=== PATIENT | male | born 1950 | race Caucasian/White ===

== ENCOUNTER 2024-09-30 10:23 | Inpatient (IN) | payer OTHER, SELFPAY ==
[2024-09-30] VITALS (15 sets, daily range): BP systolic 121–159; BP diastolic 79–104; PULSE 55–256; RESP 12–98; TEMP 36.4–37.2; O2SAT 97–100; BMI 48.2; BMI 47.6
--- NOTE | 2024-09-30 10:25 | PC.NURSE ---
@1025- BIBA; PER EMS, PT C/O SOB, PT WAS WALKING HIS DOG WHEN PT STARTED TO FEEL SHORT OF BREATH. HE LAID HIMSELF ON THE WALK WAY. UPON OUR ARRIVAL, PT WAS PALE, DIAPHORETIC, WITH SOB. PT'S HR BETWEEN 250'S-260'S WHEN CONNECTED ON THE MONITOR. PMH OF HIGH BP & HIGH CHOLESTEROL. PT RECEIVED 6MG OF ADENOSINE, PT DID NOT RESPOND. PT GIVEN 12MG MORE OF ADENOSINE; PT STILL DID NOT RESPOND TO MEDICATION. PT PLACED ON NRB AT 15L. UPON PT ARRIVAL, PT PLACED ON MONITOR; PT'S HR FLUCTUATED BETWEEN 250'S TO 260'S WELL. DR. JULIO AT BEDSIDE AND ASSESSED PT'S RHYTHM. PER DR. JULIO, PT IN V-TACH. PREPARE TO SHOCK. PT CONNECTED TO DEFIB PADS AT 1028. @1029 PT WAS SHOCKED WITH 200J; POSITIVE RESPONSE. PT'S HR DECREASED TO 125 AT THIS TIME. @1030- PT GIVEN 300MG IVPUSH AMIODARONE, PER DR. JULIO VERBAL ORDER WITH READ BACK. @1035- PT'S HR NOW 107.
[2024-09-30] MEDS: AMIODARONE 50 MG/ML 300 MG IV (10:30)
--- NOTE | 2024-09-30 10:39 | EKG_ITS ---
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
[2024-09-30] MEDS: SODIUM CHLORIDE 0.9% 1000 ML 1,000 ML 999 ML IV (10:40)
--- NOTE | 2024-09-30 10:51 | EDNOTE_ITS ---
ED SOB =RME/HPI General Chief Complaint: Shortness of Breath/Dyspnea Stated Complaint: SVT Time Seen by Provider: 09/30/24 10:50 Arrival date/time: 09/30/24 10:23 RME / HPI RME / HPI Narrative: 73-year-old male patient brought in by ambulance for tachycardia. Per EMS patient was walking his dog when he became dizzy and short of breath, then laid on the ground. EMS tried to get him up and he complained of severe dizziness. When they placed a monitor they noted his heart rate to be over 200. They tried adenosine 6 mg and route without success. On arrival patient is lethargic groaning diaphoretic. Blood pressure was not obtainable. Patient was placed on the monitor and noted to be in V. tach. Shocked delivered. Patient converted to sinus rhythm. Now awake and alert. Related Data Previous Rx's ?Medication ?Instructions ?Recorded amiodarone 200 mg tablet 200 mg PO BID 30 days #60 ta bs 10/03/24 aspirin 81 mg chewable tablet 81 mg PO QDAY heart fail 30 days 10/03/24 (Suha Chewable Low Dose Aspirin) #30 tabs atorvastatin 20 mg tablet 40 mg (2 x 20 mg) PO HS 07/25 Hyperlipidemia 30 days #60 tabs bumetanide 1 mg tablet 1 mg PO QDAY heart failure # 30 tabs 10/03/24 metformin 500 mg tablet,extended 500 mg PO QDAY 30 day s #30 tabs 10/03/24 release 24 hr metoprolol succinate 25 mg 25 mg PO QDAY 30 days #30 t abs 10/03/24 tablet,extended release 24 hr Allergies Allergy/AdvReac Type Severity Reaction Status Date / Time No Known Allergies Allergy Verified 09/30/24 11:10 Review of Systems Review of Systems ROS Unobtainable: unobtainable due to medical condition Past Medical History Past Medical History CARDIAC: Positive Hypercholesterolemia and Hypertension; Negative Congestive Heart Failure RESPIRATORY: Negative Chronic Obstructive Pulmonary Disease (COPD) GENITOURINARY: Negative Renal Disease ENDOCRINE: Negative Diabetes Mellitus Type 1 or Diabetes Mellitus Type 2 Family History FAMILY HISTORY: Positive Family Cardiac Disorders; Negative Family Cancer Surgical History SURGICAL: Positive Knee Sx Social History SMOKING STATUS: Never smoker ED Exam Narrative Physical exam: GENERAL APPEARANCE: altered, morbidly obese, moaning and groaning, responds to verbal and painful stimuli VITALS: All vitals were reviewed and the pulse ox is 99% on 15L/nonrebrether mask which is abnormal according to my interpretation. HEENT: Normocephalic, atraumatic; pupils equal, round, reactive to light; EOMI; mucous membranes pink, moist; oropharynx clear NECK: Supple LUNGS: CTABL; no wheezes, no rales, no rhonchi HEART: Tachycardic, distant heart sounds ABDOMEN: non distended; normal BS; soft, no tenderness, no guarding, no rebound; no masses, no organomegaly, no hernia BACK: no CVA tenderness EXTREMITIES: atraumatic; no edema; weak thready pulses NEUROLOGIC: altered, confused SKIN: warm, diaphoretic, pale; no rashes Course Quality Measures none Orders Category Date Time Status Patient Condition Routine Admission 09/30/24 13:48 Ordered Lift Slab Operator NOW Care 09/30/24 11:22 Completed EKG (ED ONLY) *Do not use* NOW Care 09/30/24 10:39 Completed EKG (ED ONLY) *Do not use* NOW Care 09/30/24 13:37 Completed Intake and Output QSHIFT Care 09/30/24 14:00 Ordered Miscellaneous Nursing Order NOW Care 09/30/24 13:48 Completed Notify provider NEEDED Care 09/30/24 13:48 Completed Obtain weight NOW Care 09/30/24 13:48 Completed CA echo doppler complete Stat Exams 09/30/24 13:22 Completed EKG (ED Only) Stat Exams 09/30/24 10:39 Draft EKG (ED Only) Stat Exams 09/30/24 13:37 Ordered EKG (ED Only) Urgent Exams 09/30/24 13:37 Ordered XR chest 1V portable Stat Exams 09/30/24 11:22 Completed B-Type Natriuretic Peptide Stat Lab 09/30/24 11:37 Completed CBC AM DRAW Lab 10/01/24 03:34 Completed CBC AM DRAW Lab 10/02/24 06:14 Completed CBC AM DRAW Lab 10/03/24 05:57 Completed CBC Stat Lab 09/30/24 11:37 Completed CMP [Comprehensive Metabolic Panel] AM DRAW Lab 10/01/24 03:34 Completed CMP [Comprehensive Metabolic Panel] AM DRAW Lab 10/02/24 06:14 Completed CMP [Comprehensive Metabolic Panel] AM DRAW Lab 10/03/24 05:57 Completed Comprehensive Metabolic Panel Stat Lab 09/30/24 11:37 Completed Lipase Stat Lab 09/30/24 11:37 Completed Lipid Panel AM DRAW Lab 10/01/24 03:34 Completed MRSA Nasal Screen Stat Lab 09/30/24 16:20 Completed Magnesium AM DRAW Lab 10/01/24 03:34 Completed Magnesium Stat Lab 09/30/24 11:37 Completed Partial Thromboplastin Time Stat Lab 09/30/24 11:37 Completed Phosphorous AM DRAW Lab 10/01/24 03:34 Completed Prothrombin Time with INR Stat Lab 09/30/24 11:37 Completed Thyroid Stimulating Hormone AM DRAW Lab 10/01/24 03:34 Completed Troponin I Stat Lab 09/30/24 11:37 Completed Urinalysis Routine Lab 09/30/24 14:43 Completed Acetaminophen Tab [Tylenol Tab] Med 09/30/24 13:48 Discontinued 650 mg PO Q6H PRN Adenosine 6mg Inj [Adenocard Inj] Med 09/30/24 10:21 Discontinued 12 mg .ROUTE .STK-MED ONE Adenosine 6mg Inj [Adenocard Inj] Med 09/30/24 10:21 Discontinued 6 mg .ROUTE .STK-MED ONE Amiodarone 150 mg Ivpb [Nexterone Ivpb] Med 09/30/24 10:41 Discontinued 150 mg in 100 ml IV 600 mls/hr Amiodarone 150 mg Ivpb [Nexterone Ivpb] Med 09/30/24 10:30 Discontinued 150 mg in 100 ml IV Q5M Amiodarone 360 mg Ivpb [Nexterone Ivpb] Med 09/30/24 16:51 Discontinued 360 mg in 200 ml IV 16.667 mls/hr Amiodarone 360 mg Ivpb [Nexterone Ivpb] Med 09/30/24 10:51 Discontinued 360 mg in 200 ml IV 33.333 mls/hr Amiodarone Inj [Cordarone Inj] Med 09/30/24 10:45 Discontinued 300 mg IV X1 ONE Amiodarone Inj [Cordarone Inj] 300 mg Med 09/30/24 10:37 Discontinued Dextrose 5%-Water [D5w] 100 ml IV X1 Ondansetron Inj [Zofran Inj] Med 09/30/24 13:48 Discontinued 4 mg IV Q6H PRN Senna [Senokot] Med 09/30/24 13:48 Discontinued 2 tab PO BID PRN Sodium Chloride 0.9% 1000 ml [Ns] 1,000 ml Med 09/30/24 10:48 Discontinued IV 999 mls/hr Code Status Routine Oth 09/30/24 13:48 Completed Oxygen Delivery DAILY RT 09/30/24 13:48 Completed Vital Signs Vital signs: Vital Signs Temperature 98.3 F 09/30/24 10:30 Pulse Rate 256 H 09/30/24 10:30 Respiratory Rate 24 H 09/30/24 10:30 Blood Pressure 147/100 H 09/30/24 10:30 Pulse Oximetry (%) 99 09/30/24 10:30 Oxygen Flow Rate 15 09/30/24 10:30 Shortness of Breath / Dyspnea MDM Narrative MDM Narrative:: Patient was cardioverted due to being in Vtach. Patient returned back to NSR and became awake, alert, and oriented x4. Patient given amiodarone 300mg and started on a amiodarone drip. Discussed case with Dr. Thompson from cardiology regarding consultation. Discussed patients ED course, exam findings, labs, and radiology results. Agrees to consult. Discussed case with the resident physician, attending Dr. Abebe from Hospitalist service regarding admission. Discussed patients ED course, exam findings, labs, and radiology results. The Hospitalist agrees to accept the patient for admission. Patient data External records reviewed:: [facility] previous records (Per chart review, patient has no previous ED visits or admissions to this facility.) and EMS form Clinical information provided by:: EMS Social determinants that could affect healthcare access:: none Patient has the following chronic illnesses:: HTN, HLD How is presenting disease/condition affected by chronic disease/condition?: uneffected by Evaluation data The following diagnostics were reviewed and interpreted by me:: lab results and EKG tracing(s) Lab and/or radiology exams considered but not ordered:: none Interpretation Summary: EKG done at 1342, mild sinus arrhythmia, rate of 68, notched P wave, MS interval: 171, QTc: 473, no STEMI, according to my interpretation. -------- [facility] Report Signed Patient: PELON LOTT. Record#: [id number] Birthdate: 1950 Age/Sex: 73 / M Location: [facility] Attending Dr: Ordering Physician: Annalisa Bolden MD Date of Service: 09/30/24 Procedure(s): XR chest 1V portable Accession Number(s): [id number] cc: Mahamed Longo MD; Annalisa Bolden MD~ Examination: AP chest single view Technique one AP portable upright chest single view Date and time: September 30, 2024 1130 hours INDICATIONS: Onset chest pain today. FINDINGS: Mild heart failure. Mild enlargement cardiac contour. Prominent vascular congestion. No lobar pneumonia. IMPRESSION: Mild heart failure Dictated By: Mahamed Longo MD Signed By: <Electronically signed by Mahamed Longo MD in OV> 09/30/24 1136 Medications / Prescriptions Medications or Prescriptions considered but not ordered:: none Medication administrations:: Medication Administration History Discontinued Medications Acetaminophen (Acetaminophen 325 Mg Tablet) 650 mg PO Q6H PRN PRN Reason: PAIN 1-3 OR FEVER > 101 Stop: 10/30/24 13:47 Adenosine (Adenosine Inj 3 Mg/Ml Vial) Confirm Administered Dose 6 mg .ROUTE .STK-MED ONE Stop: 09/30/24 10:22 Last Admin: 09/30/24 10:35 Dose: Not Given Documented By: Non-Admin Reason: Cancelled by Provider Adenosine (Adenosine Inj 3 Mg/Ml Vial) Confirm Administered Dose 12 mg .ROUTE .STK-MED ONE Stop: 09/30/24 10:22 Last Admin: 09/30/24 10:35 Dose: Not Given Documented By: Non-Admin Reason: Cancelled by Provider Amiodarone HCl (Amiodarone Inj 50 Mg/Ml Vial 3 Ml) 300 mg IV X1 ONE Stop: 09/30/24 10:46 Last Admin: 09/30/24 10:30 Dose: 300 mg Documented By: GM Aspirin (Aspirin Ec 81 Mg Tabec) 81 mg PO DAILY JASON Stop: 10/31/24 08:59 Last Admin: 10/03/24 08:45 Dose: 81 mg Documented By: Admin: 10/02/24 08:14 Dose: 81 mg Documented By: Admin: 10/01/24 10:12 Dose: 81 mg Documented By: QUE Atorvastatin Calcium (Atorvastatin Calcium 20 Mg Tablet) 40 mg PO HS [facility] Stop: 10/31/24 20:59 Last Admin: 10/02/24 20:22 Dose: 40 mg Documented By: Admin: 10/01/24 20:04 Dose: 40 mg Documented By: CARRIE Atropine Sulfate (Atropine Sulf Inj 1 Mg/Ml Vial) Confirm Administered Dose 1 mg .ROUTE .SOAK ([employer] ONE Stop: 10/01/24 10:35 Last Admin: 10/01/24 10:59 Dose: Not Given Documented By: PLACIDO Non-Admin Reason: Duplicate Medication on eMAR Bumetanide (Bumetanide 0.5 Mg Tablet) 1 mg PO BID [facility] Stop: 11/01/24 08:59 Last Admin: 10/03/24 08:46 Dose: 1 mg Documented By: Admin: 10/02/24 20:22 Dose: 1 mg Documented By: Admin: 10/02/24 08:16 Dose: 1 mg Documented By: QUE Dextrose (Dextrose 50%-Water Inj 50 Ml Syringe) 25 ml IV Q15MIN PRN PRN Reason: BG 50-70 responsive npo pt Stop: 10/31/24 08:26 Dextrose (Dextrose 50%-Water Inj 50 Ml Syringe) 50 ml IV Q15MIN PRN PRN Reason: BG <50 OR BG <70 & pt unresponsive Stop: 10/31/24 08:26 Epinephrine HCl (Epinephrine Inj 0.1 Mg/Ml Syringe 10ml) Confirm Administered Dose 1 mg .ROUTE .Plazapoints (Cuponium) ONE Stop: 10/01/24 10:36 Last Admin: 10/01/24 10:59 Dose: Not Given Documented By: PLACIDO Non-Admin Reason: Duplicate Medication on eMAR Famotidine (Famotidine Inj 10 Mg/Ml Vial 2 Ml) 20 mg IVP BID [facility] Stop: 10/31/24 08:59 Last Admin: 10/03/24 08:43 Dose: 20 mg Documented By: Admin: 10/02/24 20:22 Dose: 20 mg Documented By: Admin: 10/02/24 08:14 Dose: 20 mg Documented By: Admin: 10/01/24 20:03 Dose: 20 mg Documented By: Admin: 10/01/24 10:12 Dose: 20 mg Documented By: QUE Fentanyl Citrate (Fentanyl Cit Inj 50 Mcg/Ml Amp 2ml) Confirm Administered Dose 100 mcg .ROUTE .SOAK ([employer] ONE Stop: 10/01/24 10:35 Last Admin: 10/01/24 10:59 Dose: Not Given Documented By: DL Non-Admin Reason: Duplicate Medication on eMAR Flumazenil (Flumazenil Inj 0.1 Mg/Ml Vial 10 Ml) Confirm Administered Dose 1 mg .ROUTE .STK-MED ONE Stop: 10/01/24 10:36 Last Admin: 10/01/24 11:00 Dose: Not Given Documented By: DL Non-Admin Reason: Duplicate Medication on eMAR Glucagon (Glucagon Inj 1 Mg Vial) 1 mg IM Q15MIN PRN PRN Reason: BG <70, and no IV access Heparin Sodium (Porcine) (Heparin Sod Inj 5000 Unit/Ml Vial) 4,000 unit IV X1 ONE; Protocol Stop: 09/30/24 20:32 Last Admin: 09/30/24 21:30 Dose: 4,000 unit Documented By: SM Co-signed By: RC Heparin Sodium (Porcine) (Heparin Sod Inj 5000 Unit/Ml Vial 10 Ml) 4,000 unit IV X1 ONE Stop: 10/01/24 04:59 Last Admin: 10/01/24 05:07 Dose: Not Given Documented By: AM(2) Non-Admin Reason: Duplicate Medication on eMAR Heparin Sodium (Porcine) (Heparin Sod Inj 5000 Unit/Ml Vial 10 Ml) 4,000 unit IV X1 ONE Stop: 10/01/24 05:03 Last Admin: 10/01/24 05:13 Dose: Not Given Documented By: AM(2) Non-Admin Reason: Duplicate Medication on eMAR Heparin Sodium (Porcine) (Heparin Sod Inj 5000 Unit/Ml Vial) 4,000 unit IV X1 ONE Stop: 10/01/24 05:16 Last Admin: 10/01/24 05:19 Dose: 4,000 unit Documented By: AM(2) Co-signed By: RB Heparin Sodium (Porcine) (Heparin Sod Inj 1000 Unit/Ml Vial 10 Ml) Confirm Administered Dose 30,000 unit .ROUTE .STK-MED ONE Stop: 10/01/24 10:36 Last Admin: 10/01/24 11:00 Dose: Not Given Documented By: DL Non-Admin Reason: Duplicate Medication on eMAR Hydralazine HCl (Hydralazine Inj 20 Mg/Ml Vial) Confirm Administered Dose 20 mg .ROUTE .STK-MED ONE Stop: 10/01/24 11:58 Last Admin: 10/01/24 12:58 Dose: Not Given Documented By: DL Non-Admin Reason: Duplicate Medication on eMAR Amiodarone HCl/Dextrose (Nexterone Ivpb) 150 mg in 100 mls @ 1,200 mls/hr IV Q5M JASON Stop: 09/30/24 10:39 Last Admin: 09/30/24 10:37 Dose: Not Given Documented By: GM Non-Admin Reason: Cancelled by Provider Admin: 09/30/24 10:30 Dose: Not Given Documented By: GM Non-Admin Reason: Other, see note Comments: CHANGED TO IV PUSH IN THE EVENT OF EMERGENCY Amiodarone HCl 300 mg/ (Dextrose) 106 mls @ 600 mls/hr IV X1 ONE Stop: 09/30/24 10:47 Last Admin: 09/30/24 10:43 Dose: Not Given Documented By: JOE Non-Admin Reason: Discontinued Amiodarone HCl/Dextrose (Nexterone Ivpb) 360 mg in 200 mls @ 33.333 mls/hr IV .Q6H ONE Stop: 09/30/24 16:50 Last Infusion: 09/30/24 21:34 Dose: Infused Documented By: Admin: 09/30/24 15:33 Dose: 33.333 mls/hr Documented By: JOE Amiodarone HCl/Dextrose (Nexterone Ivpb) 150 mg in 100 mls @ 600 mls/hr IV .Q10M ONE Stop: 09/30/24 10:50 Last Infusion: 09/30/24 13:43 Dose: Infused Documented By: Admin: 09/30/24 13:32 Dose: 600 mls/hr Documented By: MIHAI Amiodarone HCl/Dextrose (Nexterone Ivpb) 360 mg in 200 mls @ 16.667 mls/hr IV .Q12H JASON Stop: 10/01/24 16:50 Last Admin: 10/01/24 10:15 Dose: 16.667 mls/hr Documented By: Infusion: 10/01/24 09:38 Dose: Infused Documented By: Admin: 09/30/24 21:38 Dose: 16.667 mls/hr Documented By: ANGELES Sodium Chloride (Ns) 1,000 mls @ 999 mls/hr IV .Q1H1M ONE Stop: 09/30/24 11:48 Last Infusion: 09/30/24 11:45 Dose: Infused Documented By: Admin: 09/30/24 10:40 Dose: 999 mls/hr Documented By: JOE Heparin Sodium/Dextrose (Heparin In D5w Ivpb) 25,000 unit in 250 mls @ 10 mls/hr IV .Q24H [facility]; Protocol Stop: 10/14/24 20:44 Last Titration: 10/01/24 05:19 Dose: 11.032 units/kg/hr, 15.688 mls/hr Documented By: AM(2) Co-signed By: RB Admin: 09/30/24 21:32 Dose: 7.032 units/kg/hr, 10 mls/hr Documented By: ANGELES Co-signed By: DOROTHEA Nitroglycerin/Dextrose (Nitroglycerin In D5w Ivpb) Confirm Administered Dose 50 mg in 250 mls @ ud .ROUTE .STK-MED ONE Stop: 10/01/24 10:37 Last Admin: 10/01/24 11:00 Dose: Not Given Documented By: PLACIDO Non-Admin Reason: Duplicate Medication on eMAR Insulin Human Lispro (Insulin Lispro (Admelog) 1 Unit/0.01 Ml Unit) 0 unit SC AC [facility]; Protocol Stop: 10/31/24 11:29 Last Admin: 10/03/24 11:30 Dose: Not Given Documented By: EIMLY Non-Admin Reason: Per Protocol Admin: 10/03/24 07:30 Dose: Not Given Documented By: EMILY Non-Admin Reason: Per Protocol Admin: 10/02/24 17:00 Dose: Not Given Documented By: JLuke Non-Admin Reason: Per Protocol Admin: 10/02/24 11:30 Dose: Not Given Documented By: JT Non-Admin Reason: Per Protocol Admin: 10/02/24 08:17 Dose: Not Given Documented By: JT Non-Admin Reason: Per Protocol Admin: 10/01/24 17:26 Dose: Not Given Documented By: JT Non-Admin Reason: Per Protocol Admin: 10/01/24 11:30 Dose: Not Given Documented By: JT Non-Admin Reason: Pt not in room Lidocaine HCl (Lidocaine Inj Pf 1% 30 Ml Vial) Confirm Administered Dose 30 ml .ROUTE .STK-MED ONE Stop: 10/01/24 10:36 Last Admin: 10/01/24 11:00 Dose: Not Given Documented By: DL Non-Admin Reason: Duplicate Medication on eMAR Losartan Potassium (Losartan Potassium 25 Mg Tablet) 25 mg PO QDAY [facility] Stop: 11/01/24 08:59 Last Admin: 10/02/24 08:15 Dose: 25 mg Documented By: QUE Metoprolol Succinate (Metoprolol Succinate Xl 25 Mg Tabcr) 25 mg PO QDAY [facility] Stop: 10/31/24 08:59 Last Admin: 10/03/24 08:45 Dose: 25 mg Documented By: Admin: 10/02/24 08:14 Dose: 25 mg Documented By: Admin: 10/01/24 10:11 Dose: 25 mg Documented By: QUE Midazolam HCl (Midazolam Inj 1 Mg/Ml Vial 2 Ml) Confirm Administered Dose 4 mg .ROUTE .STK-MED ONE Stop: 10/01/24 10:35 Last Admin: 10/01/24 10:59 Dose: Not Given Documented By: DL Non-Admin Reason: Duplicate Medication on eMAR Naloxone HCl (Naloxone Inj 0.4 Mg/Ml Vial) Confirm Administered Dose 0.4 mg .ROUTE .STK-MED ONE Stop: 10/01/24 10:36 Last Admin: 10/01/24 11:00 Dose: Not Given Documented By: PLACIDO Non-Admin Reason: Duplicate Medication on eMAR Ondansetron HCl (Ondansetron Inj 2 Mg/Ml Inj 2 Ml) 4 mg IV Q6H PRN; Protocol PRN Reason: NAUSEA OR VOMITING Stop: 10/30/24 13:47 Phenylephrine HCl (Phenylephrine Inj In Ns 100 Mcg/Ml 10 Ml Syringe) Confirm Administered Dose 1,000 mcg .ROUTE .STK-MED ONE Stop: 10/01/24 10:36 Last Admin: 10/01/24 11:00 Dose: Not Given Documented By: DL Non-Admin Reason: Duplicate Medication on eMAR Potassium Chloride (Potassium Chloride 20 Meq Tabcr) 20 meq PO X1 ONE Stop: 10/03/24 09:10 Last Admin: 10/03/24 09:28 Dose: 20 meq Documented By: JOSH Sacubitril/Valsartan (Sacubitril 24 Mg/Valsartan 26 Mg Tablet) 1 tab PO BID JASON Stop: 11/02/24 08:59 Last Admin: 10/03/24 08:45 Dose: 1 tab Documented By: EMILY Sennosides (Senna Tablet) 2 tab PO BID PRN; Protocol PRN Reason: CONSTIPATION Stop: 10/30/24 13:47 see above Consultations Consultation(s) initiated? (list below): Yes Diagnosis Shortness of Breath Differential Diagnosis: other (arrhythmia, ACS, CVA, syncope, dehydration, seizure) Most likely diagnosis given after review of the tests above:: see clinical impression below Admission Indicated Admission indicated?: indicated Admission Request Was there a request for admission?: Yes Admission Attestation Admission request attestation: Discussed case with [] from Hospitalist service regarding admission. Discussed patients ED course, exam findings, labs, and radiology results. The Hospitalist [agrees,declines] to accept the patient for admission. Disposition Plan Disposition Plan: Admit Critical Care Time Critical Care Time Critical Care Time: Yes Total Critical Care Time (min.): 50 Attestation: The high probability of sudden, clinically significant deterioration in the patient?s condition required the highest level of my preparedness to intervene urgently. The services I provided to this patient were to treat and/or prevent clinically significant deterioration. Services included the following: chart data review, reviewing nursing notes and/or old charts, documentation time, career development consultant collaboration regarding findings and treatment options, medication orders and management, direct patient care, vital sign assessments and ordering, interpreting and reviewing diagnostic studies and lab tests. Aggregate critical care time includes only time during which I was engaged in work directly related to the patient?s care, as described above, whether at bedside or elsewhere in the Emergency Department. It did not include time spent performing other reported procedures or the services of residents, students, nurses or physician assistants. Discharge Plan Plan Patient Disposition: Admit Acute Care w/in Hospital Patient condition on transfer: Stable Problem List Clinical Impression: V-tach
--- NOTE | 2024-09-30 11:00 | PC.NURSE ---
SPOKE TO DR. JULIO; THIS RN SEEKING CLARIFICATION IF OK TO START AMIODARONE DRIP PROTOCOL. PT'S HR IN THE 70'S AT THIS TIME. PER DR. JULIO, HOLD THE AMIODARONE DRIP FOR NOW.
--- NOTE | 2024-09-30 11:22 | XR_ITS ---
Examination: AP chest single view Technique one AP portable upright chest single view Date and time: September 30, 2024 1130 hours INDICATIONS: Onset chest pain today. FINDINGS: Mild heart failure. Mild enlargement cardiac contour. Prominent vascular congestion. No lobar pneumonia. IMPRESSION: Mild heart failure
[2024-09-30 11:50] LABS: Basophils # (Auto) 0.0 Thou/mm3 (0.0-0.2); Basophils % (Auto) 0 % (0-2.5); Eosinophils # (Auto) 0.1 Thou/mm3 (0.0-0.5); Eosinophils % (Auto) 1 % (0-10); Hematocrit 45.1 % (41.0-53.0); Hemoglobin 15.9 g/dL (13.5-16.0); Immature Granulocytes Auto 0.04 Thou/mm3 (0.00-0.00); Lymphocytes # (Auto) 1.4 Thou/mm3 (1.0-4.8); Lymphocytes % (Auto) 12 % (10-50); Mean Corpuscular HGB Conc 35.3 g/dl (31.0-37.0); Mean Corpuscular Hemoglobin 31.2 pg (25.0-35.0); Mean Corpuscular Volume 88 fL (80-100); Monocytes # (Auto) 0.4 Thou/mm3 (0.0-0.8); Monocytes % (Auto) 3 % (0-12); Neutrophils # (Auto) 9.8 Thou/mm3 (1.8-7.7); Neutrophils % (Auto) 84 % (37-80); Nucleated Red Blood Cell # 0.00 Thou/mm3 (0.00-0.00); Nucleated Red Blood Cell % 0 /100 WBC (0); Platelet Count 165 Thou/mm3 (140-440); RDW Standard Deviation 42.0 fL (35.1-43.9); Red Blood Count 5.10 Miln/mm3 (4.50-5.90); White Blood Count 11.7 Thou/mm3 (3.8-10.6)
[2024-09-30 12:03] LABS: INR 1.0 (0.9-1.3); Partial Thromboplastin Time 24.2 Seconds (22.0-36.0); Prothrombin Time 11.4 Seconds (9.0-12.2)
[2024-09-30 12:11] LABS: Alanine Aminotransferase 59 U/L (10-49); Albumin, Serum 4.0 gm/dL (3.4-4.8); Albumin/Globulin Ratio 1.4 (1.2-2.2); Alkaline Phosphatase 75 U/L (46-116); Anion Gap 12 (7-16); Aspartate Amino Transferase 59 U/L (0-34); BUN/Creatinine Ratio 12 Ratio (12-20); Bilirubin,Total 0.8 mg/dL (0.3-1.2); Blood Urea Nitrogen 16 mg/dL (9-23); Calcium 9.1 mg/dL (8.3-10.6); Calcium (Corrected) 9.1 mg/dL (8.5-10.1); Carbon Dioxide 20.0 mMol/L (20.0-31.0); Chloride 108 mMol/L (98-107); Creatinine (Component) 1.3 mg/dL (0.6-1.3); Estimated Creatinine Clearance 71.6 mL/min (>60); Globulin 2.8 gm/dL (2.3-3.5); Glucose 241 mg/dL (74-106); Lipase 32 U/L (12-53); Magnesium 2.2 mg/dL (1.6-2.6); Osmolality,Calculated 288 (275-295); Potassium 4.4 mMol/L (3.4-5.1); Sodium 140 mMol/L (136-145); Total Protein 6.8 gm/dL (5.7-8.2); eGFR 58 See Note
[2024-09-30 12:13] LABS: B-Type Natriuretic Peptide 136 pg/mL (0-100); Troponin I 0.086 ng/mL (0.0-0.045)
--- NOTE | 2024-09-30 13:22 | ECHO_ITS ---
Transthoracic Echo Report Ht (in): 68 Wt (lb): 280 Exam Location: Echo Lab Status: Emergency Hay Stacker Operator: Sheri Jimenez Indications: Procedure Performed: BP: 139 / 85 HR: 99 Technical Quality: Technically Difficult Due to Body Habitus MEASUREMENTS (Male / Female) Normal Values 2D ECHO LV Diastolic Diameter PLAX 5.9 cm 4.2 - 5.9 / 3.9 - 5.3 cm LV Systolic Diameter PLAX 5.1 cm IVS Diastolic Thickness 1.1 cm 0.6 - 1.0 / 0.6 - 0.9 cm LVPW Diastolic Thickness 1.0 cm 0.6 - 1.0 / 0.6 - 0.9 cm LV Relative Wall Thickness 0.4 LVOT Diameter 2.2 cm LA Volume Index 42.7 cm?/m? 16 - 28 cm?/m? DOPPLER AV Peak Velocity 100.0 cm/s AV Peak Gradient 4.0 mmHg LVOT Peak Velocity 56.8 cm/s LVOT Peak Gradient 1.3 mmHg AV Area Cont Eq pk 2.2 cm? MV Area PHT 4.3 cm? Mitral E Point Velocity 95.1 cm/s Mitral A Point Velocity 19.4 cm/s Mitral E to A Ratio 4.9 LV E' Lateral Velocity 7.8 cm/s Mitral E to LV E' Lateral Ratio 12.1 LV E' Septal Velocity 6.5 cm/s Mitral E to LV E' Septal Ratio 14.6 PV Peak Velocity 82.8 cm/s PV Peak Gradient 2.7 mmHg FINDINGS Left Ventricle The left ventricular cavity size is moderately increased. The left ventricular castaneda are mildly thickened. The left ventricular ejection fraction is severely decreased, estimated at 10-15%. There is grade III diastolic dysfunction of the left ventricle (restrictive filling pattern). Right Ventricle The right ventricle appears enlarged. RVSP can not be determined due to innadequate tricuspid signal. Left Atrium The left atrial cavity size is moderately increased. Right Atrium The right atrium is normal by two-dimensional imaging, color flow and Doppler imaging with no structural abnormalities, no thrombus formation present. Atrial Septum The interatrial septum appears normal with no evidence of a shunt. Aorta The aorta is normal by two-dimensional, color flow and Doppler interrogation. Mitral Valve The mitral valve is normal by two-dimensional, color flow and Doppler interrogation. There is trace mitral regurgitation. Aortic Valve The aortic valve is trileaflet and normal by two-dimensional, color flow and Doppler interrogation. There is no significant aortic valve regurgitation. Tricuspid Valve The tricuspid valve is normal by two-dimensional, color flow and Doppler interrogation. There is no significant tricuspid valve regurgitation. Pulmonic Valve The pulmonic valve is not well visualized. There is no significant pulmonic valve regurgitation. Vessels The pulmonary artery appears normal. The inferior vena cava is severely enlarged with poor collapse. Pericardium The pericardium is normal by two-dimensional imaging. There is no significant pericardial effusion. CONCLUSIONS Indications: Arrythymia Mildly dilated LV with severely reduced LV systolic function with an EF of 20 to 25%. Diastolic dysfunction present but cannot be graded. Mild RV dilatation with normal RV function. RVSP could not be measured because of insufficient TR jet. Mild MAC and mild MR. Mild aortic valve sclerosis without stenosis. Mildly dilated LA. Dilated IVC. No Pericardial Effusion. Dilated cardiomyopathy. Ramsey Thompson (Electronically Signed) Final Date: 30 September 2024 22:59
--- NOTE | 2024-09-30 13:27 | PC.NURSE ---
Aiden Bolden start amiodarone drip. Patient heart rate 72 BP 143/92
[2024-09-30] MEDS: AMIODARONE 150 MG IVPB 150 MG/100 ML BAG 600 MG IV (13:32)
--- NOTE | 2024-09-30 14:19 | PC.NURSE ---
Hospitalists, Dr. Rosa made aware patient bp 133/91, HR 54, 150mg amiodarone bolus completed, per Dr. Rosa hold Amiodarone 2nd gtt for now, their team will check with attending Dr. santiago and notify primary nurse Raman of plan of care. Eli primary nurse made aware.
[2024-09-30 14:59] LABS: Bilirubin,Urine Negative (Negative); Blood,Urine Negative (Negative); Clarity,Urine Clear (Clear/Hazy); Collection Type, Urine Clean Catch; Color,Urine Lt-Yellow (Lt Yel-Yel); Glucose, Urine 1+ (Negative); Hyaline Casts,Urine < 1 /hpf (0-1); Ketones,Urine Negative (Negative); Leukocyte Esterase,Urine Negative (Negative); Nitrite,Urine Negative (Negative); PH,Urine 6.5 (5.0-7.0); Protein,Urine 1+ (Neg - Trace); RBC,Urine 2 /hpf (0-3); Specific Gravity,Urine 1.014 (1.001-1.035); Squamous Epithelial Cell,Urine < 1 /hpf (0-5); Urobilinogen,Urine Negative mg/dL (0.0-1.0); WBC,Urine 1 /hpf (0-5)
--- NOTE | 2024-09-30 15:31 | PC.NURSE ---
SPOKE TO DR. QUISPE AT THIS TIME; PER DR. QUISPE, OK TO CONTINUE SECOND BAG FOR PT'S AMIODARONE DRIP; STOP INFUSION IF BP'S MAP LESS THAN 65.
[2024-09-30] MEDS: AMIODARONE 360 MG IVPB 360 MG/200 ML BAG 33.333 MG IV (15:33)
[2024-09-30 17:46] LABS: Troponin I 1.036 ng/mL (0.0-0.045)
--- NOTE | 2024-09-30 18:52 | ESCONSULT_ITS ---
HPI Data of Consult Requesting Physician: Dave Abebe DO Admitting Provider: Dave Abebe DO Attending Provider: Dave Abebe DO Primary Care Provider: Physician No Primary/Family Consult Narrative Reason for consult: Arrhythymia - VT vs SVT History of present illness: 73-year-old male with significant past medical history of hypertension, hyperlipidemia brought to the hospital with chief complaints of palpitations and dizziness since 3 hours. Patient is apparently normal till the day of admission. Patient endorsed that he took out his dog for walk as usual and after walking for 30 to 40 minutes, patient noticed sudden onset of palpitations followed by dizziness and felt extreme weakness. Patient immediately called 911 but due to extreme weakness patient slowly went down to the ground. Denies loss of consciousness, involuntary movements, involuntary micturition, defecation. Patient endorsed that he is able to hear and understand what is going on around him clearly but not able to open his eyes due to extreme weakness. EMS gave 2 doses of adenosine but not able to revert to sinus rhythm, Later patient was brought to the hospital and found to have heart rate around more than 250 for which patient was given a shock and reverted to normal sinus rhythm. Denies fever, chest pain, shortness of breath, similar complaints in the past, nausea vomiting, diarrhea, constipation. Endorses that at his baseline he is able to do all his routine daily activities and able to walk 2 to 3 miles every single day and reported no anginal symptoms. Patient is following [facility] and his last visit he is within a year. 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 Endorsed that he had history of bilateral lower extremity swelling for which he received diuretic ED course: - Vitals at the time of admission are significant for blood pressure 147/100 mmHg, pulse rate 256 bpm - Labs at the time of admission were significant for WBC 11.7, BUN 16, creatinine 1.3, glucose 241, AST 59, ALT 59, BNP 136 - Urinalysis is positive for proteinuria 1+, glucosuria 1+ - Chest x-ray showed mild increase in cardiac contour - In the ED, patient was given shock and later reverted to normal sinus rhythm Past medical history: Hypertension, hyperlipidemia Past surgical history: Bilateral knee surgeries Social history: Denies smoking, alcohol, other illicit drug abuse other illicit drug abuse Allergies: NKDA Cardiology is consulted in view of tachyarrhythmias, SVT versus VT cc:: cc: Dave Abebe DO Review of Systems Review of Systems Systems Reviewed: All systems reviewed, normal except as documented Past Medical History Past Medical History CARDIAC: Positive Hypercholesterolemia and Hypertension; Negative Congestive Heart Failure RESPIRATORY: Negative Chronic Obstructive Pulmonary Disease (COPD) GENITOURINARY: Negative Renal Disease ENDOCRINE: Negative Diabetes Mellitus Type 1 or Diabetes Mellitus Type 2 Family History FAMILY HISTORY: Positive Family Cardiac Disorders; Negative Family Cancer Surgical History SURGICAL: Positive Knee Sx (BILAT.) Social History SMOKING STATUS: Never smoker Exam Vital Signs Temp Pulse Resp BP Pulse Ox O2 Del Method O2 Flow Rate 97.6 F 63 20 159/104 H 99 Room Air 10 09/30/24 16:21 09/30/24 18:28 09/30/24 18:28 09/30/24 18:28 09/30/24 18:28 09/30/24 18:28 09/30/24 11:00 Narrative Exam General: Awake. HEENT: Normocephalic, atraumatic, mucous membranes moist. Heart: Regular rate and rhythm, no murmurs. Lungs: Clear to auscultation with no wheezing or crackles. Abdomen: Soft, nondistended, nontender, positive bowel sounds. ?No guarding or rebound tenderness. Neurologic: Alert and oriented x3, no gross neurological deficit, and patient able to move all 4 extremities. Extremities: B/L 2+ pitting pedal edema noted Skin: No rash or ecchymoses. Results Labs 09/30/24 11:37 09/30/24 11:37 Labs: Short CBC 09/30/24 Range/Units 11:37 WBC 11.7 H (3.8-10.6) Thou/mm3 Hgb 15.9 (13.5-16.0) g/dL Hct 45.1 (41.0-53.0) % Plt Count 165 (140-440) Thou/mm3 BMP 09/30/24 11:37 Sodium 140 Potassium 4.4 Chloride 108 H Carbon Dioxide 20.0 BUN 16 Creatinine 1.3 Glucose 241 H Calcium 9.1 Cardiac Enzymes 09/30/24 09/30/24 Range/Units 11:37 17:12 Troponin I 0.086 H* 1.036 H* D (0.0-0.045) ng/mL Liver Function 09/30/24 Range/Units 11:37 Total Bilirubin 0.8 (0.3-1.2) mg/dL AST 59 H (0-34) U/L ALT 59 H (10-49) U/L Alkaline Phosphatase 75 (46-116) U/L Albumin 4.0 (3.4-4.8) gm/dL Urine 09/30/24 Range/Units 14:43 Urine Color Lt-Yellow (Lt Yel-Yel) Urine Clarity Clear (Clear/Hazy) Urine pH 6.5 (5.0-7.0) Ur Specific [place] 1.014 (1.001-1.035) Urine Protein 1+ A (Neg - Trace) Urine Glucose (UA) 1+ A (Negative) Quality Measures Quality Measures VTE prophylaxis Advance care planning discussed with:: patient Medications Home Medications and Allergies Allergies Allergy/AdvReac Type Severity Reaction Status Date / Time No Known Allergies Allergy Verified 09/30/24 11:10 Visit Medications Acetaminophen (Acetaminophen 325 Mg Tablet) 650 mg PO Q6H PRN PRN Reason: PAIN 1-3 OR FEVER > 101 Stop: 10/30/24 13:47 Amiodarone HCl/Dextrose (Nexterone Ivpb) 360 mg in 200 mls @ 16.667 mls/hr IV .Q12H [facility] Stop: 10/01/24 16:50 Ondansetron HCl (Ondansetron Inj 2 Mg/Ml Inj 2 Ml) 4 mg IV Q6H PRN; Protocol PRN Reason: NAUSEA OR VOMITING Stop: 10/30/24 13:47 Sennosides (Senna Tablet) 2 tab PO BID PRN; Protocol PRN Reason: CONSTIPATION Stop: 10/30/24 13:47 Discontinued Medications Amiodarone HCl (Amiodarone Inj 50 Mg/Ml Vial 3 Ml) 300 mg IV X1 ONE Stop: 09/30/24 10:46 Last Admin: 09/30/24 10:30 Dose: 300 mg Amiodarone HCl/Dextrose (Nexterone Ivpb) 150 mg in 100 mls @ 1,200 mls/hr IV Q5M [facility] Stop: 09/30/24 10:39 Last Admin: 09/30/24 10:37 Dose: Not Given Amiodarone HCl 300 mg/ (Dextrose) 106 mls @ 600 mls/hr IV X1 ONE Stop: 09/30/24 10:47 Last Admin: 09/30/24 10:43 Dose: Not Given Amiodarone HCl/Dextrose (Nexterone Ivpb) 360 mg in 200 mls @ 33.333 mls/hr IV .Q6H ONE Stop: 09/30/24 16:50 Last Admin: 09/30/24 15:33 Dose: 33.333 mls/hr Amiodarone HCl/Dextrose (Nexterone Ivpb) 150 mg in 100 mls @ 600 mls/hr IV .Q10M ONE Stop: 09/30/24 10:50 Last Infusion: 09/30/24 13:43 Dose: Infused Sodium Chloride (Ns) 1,000 mls @ 999 mls/hr IV .Q1H1M ONE Stop: 09/30/24 11:48 Last Infusion: 09/30/24 11:45 Dose: Infused Assessment & Plan Plan 73-year-old male with significant past medical history of hypertension, hyperlipidemia brought to the hospital with chief complaints of palpitations and dizziness since 3 hours. # Tachyarrhthmia, likely VT vs SVT status post emergent cardioversion--> Reverted to Normal sinus rhythm # Dilated cardiomyopathy, Ischemic vs non ischemic - Brought with chief complaints of palpitations and dizziness since 1 hour - Denies chest pain, shortness of breath, syncope, seizure like activity - EMS gave 2 doses of adenosine but not able to revert to sinus rhythm - Patient was brought to the ED where he was given shock as he was found to have tachyarrhythmia with heart rate of around 250 - Vitals at the time of admission are significant for blood pressure 147/100 mmHg, pulse rate 256 bpm - Labs at the time of admission were significant for WBC 11.7, BUN 16, creatinine 1.3, glucose 241, AST 59, ALT 59, BNP 136 - Urinalysis is positive for proteinuria 1+, glucosuria 1+ - Chest x-ray showed mild increase in cardiac contour - EKG done later showed normal sinus rhythm - In the ED, patient was given shock and later reverted to normal sinus rhythm Plan - Lipid profile, A1c, TSH - Recommended to start on amiodarone drip - Tele monitoring - Echo done at the bedside showed Dilated cardiomyopathy with EF around 20% - Cardiac cath tomorrow to look for CAD # NSTEMI type I versus type II - Troponin at the time of admission is 0.086 - likely demand ischemia in the setting of tachyarrhythmia Plan - Recommended to trend troponins - If uptrending, recommended to start heparin drip - Cardiac cath tomorrow # Hypertension - Patient doesnt remember the name of the blood pressure medication Plan - If blood pressure permits, start ARB Obesity Patient plan of care was discussed with Sleep Medicine Physician, Dr. Donna Herring, PGY2 Attending Provider Attestation/Addendum I have personally seen and examined the patient separately on the above date of service and discussed the plan of care with the resident. I reviewed the resident Dr. Herring consultation progress note and agree with the resident findings and plan in the note above and have also edited the documentation to reflect my findings and plan. A 73-year-old male with a past medical history of essential hypertension, hyperlipidemia, obesity, osteoarthritis status post bilateral knee surgeries presented to the emergency department complaining of palpitations, chest pain as well as some dizziness. Initially the EMS EKG showed patient heart rate was also greater than 200 and received 2 doses of IV adenosine en route but still continued to be tachycardic. Patient was hypotensive on arrival with a heart rate of [id number] and was emergently cardioverted with return to sinus rhythm. Patient was given amiodarone bolus along with amiodarone drip. Patient also had mildly elevated BNP at 136, BUN of 16 creatinine 1.3, WBC of 11.7 glucose 241, AST 59, ALT 5, admission 2.2, potassium was 4. Chest x-ray mild cardiomegaly. UA negative except for 1+ proteinuria and glucosuria. Cardiology was consulted for further evaluation of the tachyarrhythmia. 1. Tachyarrhythmia-VT versus SVT-emergently cardioverted to normal sinus rhythm 2. Dilated cardiomyopathy 3. Acute new onset severe CHF exacerbation with severe systolic dysfunction with an EF of around 20% 4. NSTEMI type I versus type II 5. Hypertension 6. Hyperlipidemia 7. Obesity 8. Osteoarthritis status post bilateral knee surgeries. Unfortunately upon presentation EKG was not performed on the patient hyperkalemia and the only telemetry strip is available and could not differentiate between the weight and the SVT. Repeat EKG showed normal sinus rhythm without acute ST-T changes. Bedside echocardiogram was performed which showed an EF of around 20% with dilated LV indicating possible dilated cardiomyopathy with unclear etiology and is in the suspicion more of the VT. - Recommend to continue amiodarone drip as per protocol - Keep potassium greater than 4 and magnesium greater than 2.0 - Continue telemetry -Complete echocardiogram ordered for further evaluation junction, diastolic function and regional wall motion abnormalities. -Cardiac catheterization recommended to rule out ischemic etiology given the severe systolic CHF as well as the dilated cardiomyopathy. -Beta-blockers apply pressure is permissible and recommend to start with metoprolol XL 25 mg once daily. Bedside echocardiogram with EF of 20% and showing severe systolic congestive heart failure. BNP elevated 146 and patient does have 1+ edema bilaterally. Chest x-ray shows cardiomegaly. Unclear etiology of the heart failure. - Lasix 40 mg IV x 1 and will redose in a.m. - Strict input output Daily weights and 2 g sodium diet - Echo ordered - Cardiac catheterization for further evaluation of the new onset congestive heart failure. Elevated troponins. NSTEMI type I versus type II initial troponin was 0.086 and repeat troponin was greater than 1.0. -Recommend to continue to trend troponins as well as the EKG. - Troponins could be elevated in the setting of severe systolic CHF and lung tachyarrhythmia with supply/demand mismatch versus ischemic heart disease and hence recommended cardiac catheterization. - Heparin drip for now -Aspirin statin beta-ilsa if blood pressure permissible. - N.p.o. after midnight except medications for the cardiac catheterization in the morning On the risk-benefit and alternatives of the cardiac attrition including the risk of bleeding, heart attack, stroke and are explained in detail with the patient. Patient agreeable for the procedure and consent obtained. - Check TSH free T4 as well as A1c and lipid profile for further cardiac restratification. Ramsey Thompson M.D. Interventional Cardiology
--- NOTE | 2024-09-30 18:59 | PD.RESHP ---
Documentation for date of: 09/30/24 HPI History of Present Illness History of present illness: Patient is a 73-year-old male with a past medical history of hypertension, hyperlipidemia, kidney stones, tachyarrhythmia, who presented to the ER brought in by EMS after he had sudden onset dizziness. Patient felt like he was walking on air, he felt his heart beating really fast and he grabbed a railing by the side and called EMS. Patient denied passing out or hitting his head. Patient denied chest pain, dyspnea, nausea vomiting. Denied any acute febrile illness preceding to the symptoms. No recent change in medications reported. En route to hospital, EMS gave patient adenosine pushes x 2. On arrival to the emergency room, rhythm was identified to be V. tach, patient received cardioversion, rhythm reverted back to sinus rhythm. [facility], has yearly evaluation by [facility] machine feeder at the [facility] [place]. Reported no acute cardiac problems. Reported he had history of tachyarrhythmia in the 1980s and was started on atenolol recently medication decreased from 50 mg to 25 mg. Initial vitals in the emergency room BP 147/100, pulse documented to 56/min, respiratory 24, afebrile. Saturating 99% on room air. CBC shows mild leukocytosis WBC 11.7, hemoglobin 15.9, platelets 165, coagulation profile within normal limits, normal sodium potassium, BUN and creatinine, within normal limits, glucose 241, mild transaminase situs, troponin elevation noted, urinalysis negative for UTI. ER provider spoke to adzing and boring machine feeder on-call, the patient was started on amiodarone drip. IV fluid boluses were given. Patient will be admitted to telemetry for further observation management. Review of Systems Review of Systems Systems Reviewed: All systems reviewed, normal except as documented Past Medical History Past Medical History CARDIAC: Positive Hypercholesterolemia and Hypertension; Negative Congestive Heart Failure RESPIRATORY: Negative Chronic Obstructive Pulmonary Disease (COPD) GENITOURINARY: Negative Renal Disease ENDOCRINE: Negative Diabetes Mellitus Type 1 or Diabetes Mellitus Type 2 Family History FAMILY HISTORY: Positive Family Cardiac Disorders; Negative Family Cancer Surgical History SURGICAL: Positive Knee Sx (BILAT.) Social History SMOKING STATUS: Never smoker Exam Vital Signs Temp Pulse Resp BP Pulse Ox O2 Del Method O2 Flow Rate 97.6 F 63 20 159/104 H 99 Room Air 10 09/30/24 16:21 09/30/24 18:28 09/30/24 18:28 09/30/24 18:28 09/30/24 18:28 09/30/24 18:28 09/30/24 11:00 Narrative Exam General: AOx3, cooperative Skin: Intact, no cyanosis or edema noted. HEENT: Atraumatic/normocephalic, CATHLEEN, neck supple Heart: RRR, S1 and S2 without clicks or murmurs Lungs: Clear on auscultation bilaterally, no difficulty breathing Abdomen: Soft, nontender. Bowel sounds present . Vascular: Peripheral pulses palpable Neuro: No focal neurological deficits noted. Results: Labs 10/01/24 03:34 10/01/24 03:34 Labs: Short CBC 09/30/24 Range/Units 11:37 WBC 11.7 H (3.8-10.6) Thou/mm3 Hgb 15.9 (13.5-16.0) g/dL Hct 45.1 (41.0-53.0) % Plt Count 165 (140-440) Thou/mm3 BMP 09/30/24 11:37 Sodium 140 Potassium 4.4 Chloride 108 H Carbon Dioxide 20.0 BUN 16 Creatinine 1.3 Glucose 241 H Calcium 9.1 Cardiac Enzymes 09/30/24 09/30/24 Range/Units 11:37 17:12 Troponin I 0.086 H* 1.036 H* D (0.0-0.045) ng/mL Liver Function 09/30/24 Range/Units 11:37 Total Bilirubin 0.8 (0.3-1.2) mg/dL AST 59 H (0-34) U/L ALT 59 H (10-49) U/L Alkaline Phosphatase 75 (46-116) U/L Albumin 4.0 (3.4-4.8) gm/dL Urine 09/30/24 Range/Units 14:43 Urine Color Lt-Yellow (Lt Yel-Yel) Urine Clarity Clear (Clear/Hazy) Urine pH 6.5 (5.0-7.0) Ur Specific [place] 1.014 (1.001-1.035) Urine Protein 1+ A (Neg - Trace) Urine Glucose (UA) 1+ A (Negative) Quality Measures Quality Measures VTE prophylaxis Advance care planning discussed with:: patient Medications Home Medications and Allergies Home Medications ?Medication ?Instructions ?Recorded ?Confirmed ?Type atenolol 25 mg tablet 25 mg PO QAM 10/01/24 10/01/24 History Allergies Allergy/AdvReac Type Severity Reaction Status Date / Time No Known Allergies Allergy Verified 09/30/24 11:10 Visit Medications Acetaminophen (Acetaminophen 325 Mg Tablet) 650 mg PO Q6H PRN PRN Reason: PAIN 1-3 OR FEVER > 101 Stop: 10/30/24 13:47 Amiodarone HCl/Dextrose (Nexterone Ivpb) 360 mg in 200 mls @ 16.667 mls/hr IV .Q12H JASON Stop: 10/01/24 16:50 Ondansetron HCl (Ondansetron Inj 2 Mg/Ml Inj 2 Ml) 4 mg IV Q6H PRN; Protocol PRN Reason: NAUSEA OR VOMITING Stop: 10/30/24 13:47 Sennosides (Senna Tablet) 2 tab PO BID PRN; Protocol PRN Reason: CONSTIPATION Stop: 10/30/24 13:47 Discontinued Medications Amiodarone HCl (Amiodarone Inj 50 Mg/Ml Vial 3 Ml) 300 mg IV X1 ONE Stop: 09/30/24 10:46 Last Admin: 09/30/24 10:30 Dose: 300 mg Amiodarone HCl/Dextrose (Nexterone Ivpb) 150 mg in 100 mls @ 1,200 mls/hr IV Q5M JASON Stop: 09/30/24 10:39 Last Admin: 09/30/24 10:37 Dose: Not Given Amiodarone HCl 300 mg/ (Dextrose) 106 mls @ 600 mls/hr IV X1 ONE Stop: 09/30/24 10:47 Last Admin: 09/30/24 10:43 Dose: Not Given Amiodarone HCl/Dextrose (Nexterone Ivpb) 360 mg in 200 mls @ 33.333 mls/hr IV .Q6H ONE Stop: 09/30/24 16:50 Last Admin: 09/30/24 15:33 Dose: 33.333 mls/hr Amiodarone HCl/Dextrose (Nexterone Ivpb) 150 mg in 100 mls @ 600 mls/hr IV .Q10M ONE Stop: 09/30/24 10:50 Last Infusion: 09/30/24 13:43 Dose: Infused Sodium Chloride (Ns) 1,000 mls @ 999 mls/hr IV .Q1H1M ONE Stop: 09/30/24 11:48 Last Infusion: 09/30/24 11:45 Dose: Infused Assessment & Plan Plan Patient is a 73-year-old male with a past medical history of hypertension, hyperlipidemia, kidney stones, tachyarrhythmia, who presented to the ER brought in by EMS after he had sudden onset dizziness. Patient felt like he was walking on air, he felt his heart beating really fast and he grabbed a railing by the side and called EMS. Patient denied passing out or hitting his head. Patient denied chest pain, dyspnea, nausea vomiting. Denied any acute febrile illness preceding to the symptoms. No recent change in medications reported. En route to hospital, EMS gave patient adenosine pushes x 2. On arrival to the emergency room, rhythm was identified to be V. tach, patient received cardioversion, rhythm reverted back to sinus rhythm. [facility], has yearly evaluation by [facility]zing and boring machine feeder at the [facility] [place]. Reported no acute cardiac problems. Reported he had history of tachyarrhythmia in the 1980s and was started on atenolol recently medication decreased from 50 mg to 25 mg. Initial vitals in the emergency room BP 147/100, pulse documented to 56/min, respiratory 24, afebrile. Saturating 99% on room air. CBC shows mild leukocytosis WBC 11.7, hemoglobin 15.9, platelets 165, coagulation profile within normal limits, normal sodium potassium, BUN and creatinine, within normal limits, glucose 241, mild transaminase situs, troponin elevation noted, urinalysis negative for UTI. ER provider spoke to adzing and boring machine feeder on-call, the patient was started on amiodarone drip. IV fluid boluses were given. Patient will be admitted to telemetry for further observation management. # V. tach Patient has history of tachyarrhythmia, takes atenolol 50 mg at home, follows with adzing and boring machine feeder in the [facility] in [place], recently atenolol was reduced to 25 mg, patient had acute onset of lightheadedness, called EMS, was found to have tachyarrhythmia, pulse rate more than 200, was given adenosine x 2 IV pushes by EMS en route to ER, in the emergency room found to have V. tach, requiring DC cardioversion. Spoke to adzing and boring machine feeder Who recommended starting patient on amiodarone drip, tentative plan for cardiac cath in the morning. ? Continue amiodarone gtt. ? Echocardiogram ordered ? Cardiology consult ? N.p.o. at midnight ? Cardiac cath in the a.m. per cardiology. #Sinus bradycardia Following DC cardioversion, and amiodarone pushes, patient's rhythm reverted to sinus bradycardia, heart rate in the high 50s, per cardiology, continue amiodarone drip. ? Continue watchful observation. ? Continue amiodarone gtt. #NSTEMI type II Patient denied having any chest pain or pressure-like symptoms, noted to have troponin elevation, likely type II WI in the setting of supply/demand ischemia as well as cardioversion. ? Trend troponin ? Continue to monitor ? Consider heparin drip if patient complains of chest pain. #History of hypertension #History of hyperlipidemia #History of kidney stones ? Resume home meds pending med rec Disposition: Telemetry, cardiac cath in the a.m. DVT prophylaxis: Heparin gtt GI prophylaxis: yes Diet: npo at midnight Lines: PIV CODE STATUS: Full Plan of care discussed with Dr. Mis Wong PGY 3 Attending Provider Attestation/Addendum I have discussed and was present for the essential components of the history, physical examination, diagnosis, and treatment plan with the resident. I agree with the patient's care as documented by the resident and amended herein by me. Sushil Abebe DO. Although this document has been carefully reviewed, there may still be some phonetic and other typographical errors. These errors are purely grammatical due to imperfections in the software program and should not be construed in any way to compromise the substance of the patient's medical care during this visit.
--- NOTE | 2024-09-30 21:01 | PC.NURSE ---
THIS RN SPOKE TO DR. AGUILAR TO ASK A QUESTION ABOUT THE NEPARIN DRIP. RN ASKED WHY WOULD THIS PT NEED A HEPARIN DRIP. PT DENIES CHEST PAIN. DR. AGUILAR CLARIFIED THAT THE HEPARIN DRIP IS FOR THE ELEVATED TROP. DR. AGUILAR WANTS HEPARIN DRIP STARTED
[2024-09-30] MEDS: HEPARIN SOD INJ 5000 UNIT/ML VIAL 4000 UNIT IV (21:30)
[2024-09-30] MEDS: Heparin/D5w 25K 250 ML Ivpb 25,000 UNIT/250 ML BAG 10 UNIT IV (21:32)
[2024-09-30] MEDS: AMIODARONE 360 MG IVPB 360 MG/200 ML BAG 16.667 MG IV (21:38)
[2024-09-30 23:12] LABS: Troponin I 0.989 ng/mL (0.0-0.045)
[2024-10-01] VITALS (17 sets, daily range): BP systolic 144–175; BP diastolic 70–112; PULSE 50–67; RESP 16–98; TEMP 36.1–36.7; O2SAT 92–98; BMI 47.6; BMI 47.5
--- NOTE | 2024-10-01 03:29 | PC.NURSE ---
Attempted to complete med rec but patient only remembers one medication he takes at home which is atenolol. He states he takes more medications but does not recall the exact names of the medications. He lives alone and said that there isn't anyone that can bring his meds.
[2024-10-01 03:55] LABS: Basophils # (Auto) 0.0 Thou/mm3 (0.0-0.2); Basophils % (Auto) 0 % (0-2.5); Eosinophils # (Auto) 0.1 Thou/mm3 (0.0-0.5); Eosinophils % (Auto) 1 % (0-10); Hematocrit 42.8 % (41.0-53.0); Hemoglobin 15.2 g/dL (13.5-16.0); Immature Granulocytes Auto 0.03 Thou/mm3 (0.00-0.00); Lymphocytes # (Auto) 3.2 Thou/mm3 (1.0-4.8); Lymphocytes % (Auto) 27 % (10-50); Mean Corpuscular HGB Conc 35.5 g/dl (31.0-37.0); Mean Corpuscular Hemoglobin 31.5 pg (25.0-35.0); Mean Corpuscular Volume 89 fL (80-100); Monocytes # (Auto) 0.9 Thou/mm3 (0.0-0.8); Monocytes % (Auto) 7 % (0-12); Neutrophils # (Auto) 7.9 Thou/mm3 (1.8-7.7); Neutrophils % (Auto) 65 % (37-80); Nucleated Red Blood Cell # 0.00 Thou/mm3 (0.00-0.00); Nucleated Red Blood Cell % 0 /100 WBC (0); Platelet Count 158 Thou/mm3 (140-440); RDW Standard Deviation 43.9 fL (35.1-43.9); Red Blood Count 4.82 Miln/mm3 (4.50-5.90); White Blood Count 12.1 Thou/mm3 (3.8-10.6)
[2024-10-01 04:08] LABS: INR 1.0 (0.9-1.3); Partial Thromboplastin Time 34.2 Seconds (22.0-36.0); Prothrombin Time 11.4 Seconds (9.0-12.2)
[2024-10-01 04:11] LABS: Alanine Aminotransferase 45 U/L (10-49); Albumin, Serum 4.1 gm/dL (3.4-4.8); Albumin/Globulin Ratio 1.5 (1.2-2.2); Alkaline Phosphatase 61 U/L (46-116); Anion Gap 9 (7-16); Aspartate Amino Transferase 29 U/L (0-34); BUN/Creatinine Ratio 17 Ratio (12-20); Bilirubin,Total 0.7 mg/dL (0.3-1.2); Blood Urea Nitrogen 20 mg/dL (9-23); Calcium 9.2 mg/dL (8.3-10.6); Calcium (Corrected) 9.2 mg/dL (8.5-10.1); Carbon Dioxide 23.1 mMol/L (20.0-31.0); Cardiac Risk Estimate 2.7 RATIO (4.0-6.7); Chloride 107 mMol/L (98-107); Cholesterol 103 mg/dL (132-200); Creatinine (Component) 1.2 mg/dL (0.6-1.3); Estimated Creatinine Clearance 77.1 mL/min (>60); Globulin 2.8 gm/dL (2.3-3.5); Glucose 134 mg/dL (74-106); HDL Cholesterol 38 mg/dL (40-60); LDL Cholesterol,Calculated 46 mg/dL (0-130); Magnesium 2.1 mg/dL (1.6-2.6); Osmolality,Calculated 282 (275-295); Phosphorous 3.8 mg/dL (2.4-5.1); Potassium 4.2 mMol/L (3.4-5.1); Sodium 139 mMol/L (136-145); Thyroid Stimulating Hormone 1.22 uIU/mL (0.55-4.78); Total Protein 6.9 gm/dL (5.7-8.2); Triglycerides 94 mg/dL (30-150); eGFR > 60 See Note
[2024-10-01] MEDS: HEPARIN SOD INJ 5000 UNIT/ML VIAL 4000 UNIT IV (05:19)
[2024-10-01 05:42] LABS: Partial Thromboplastin Time 32.8 Seconds (22.0-36.0)
--- NOTE | 2024-10-01 05:51 | PC.NURSE ---
Patient's HR went down to 45. MD Restrepo notified. Patient was sleeping when I went in the room and he said he does not have any chest pain or dizziness. No new orders given
[2024-10-01 07:31] LABS: Glucose Estimated Average 137 mg/dL (80-131); Hemoglobin A1C 6.4 % Hgb (4.8-6.0)
[2024-10-01] MEDS: METOPROLOL SUCCINATE XL 25 MG TABCR PO (10:11)
[2024-10-01] MEDS: ASPIRIN EC 81 MG TABEC PO (10:12)
[2024-10-01] MEDS: FAMOTIDINE INJ 10 MG/ML VIAL 2 ML 20 MG IVP ×2 (10:12→20:03)
[2024-10-01] MEDS: AMIODARONE 360 MG IVPB 360 MG/200 ML BAG 16.667 MG IV (10:15)
[2024-10-01 11:42] LABS: Partial Thromboplastin Time 41.9 Seconds (22.0-36.0)
--- NOTE | 2024-10-01 13:18 | PD.RESPRO ---
Documentation for date of: 10/01/24 Subjective Subjective Interval history: Patient seen and examined at the bedside this morning. He reported doing well. He was curious to go home, but was told that he was still in heparin drip and amiodarone drip. He denied any chest pain, SOB, dizziness, headache, orthopnea or PND, palpitations, abdominal pain, any leg swelling. The patient underwent cardiac cath this afternoon, and was found to have mild CAD, and medical management will be done. Exam Vital Signs Temp Pulse Resp BP Pulse Ox O2 Del Method O2 Flow Rate 97.8 F 67 17 175/107 H 97 Room Air 10 10/01/24 10:56 10/01/24 10:56 10/01/24 10:56 10/01/24 10:56 10/01/24 10:56 10/01/24 10:56 09/30/24 11:00 Narrative Exam General: Awake. HEENT: Normocephalic, atraumatic, mucous membranes moist. Heart: Regular rate and rhythm, no murmurs. Lungs: Clear to auscultation with no wheezing or crackles. Abdomen: Soft, nondistended, nontender, positive bowel sounds. ?No guarding or rebound tenderness. Neurologic: Alert and oriented x3, no gross neurological deficit, and patient able to move all 4 extremities. Extremities: B/L 1+ pitting pedal edema noted Skin: No rash or ecchymoses. Objective Labs 10/01/24 03:34 10/01/24 03:34 Labs: Laboratory Results - last 24 hr 09/30/24 09/30/24 09/30/24 14:43 17:12 21:54 WBC RBC Hgb Hct MCV MCH MCHC RDW Std Deviation Plt Count Neut % (Auto) Lymph % (Auto) [place] % (Auto) Eos % (Auto) Baso % (Auto) Neut # (Auto) Lymph # (Auto) [place] # (Auto) Eos # (Auto) Baso # (Auto) Immature Gran # (Auto) Absolute Nucleated RBC Immature Gran % Nucleated RBC % PT INR APTT Sodium Potassium Chloride Carbon Dioxide Anion Gap BUN Creatinine Estim Creat Clear Calc eGFR BUN/Creatinine Ratio Glucose Estimated Ave Glu mg/dL Hemoglobin A1c Calculated Osmolality Calcium Corrected Calcium Phosphorus Magnesium Total Bilirubin AST ALT Alkaline Phosphatase Troponin I 1.036 H* D 0.989 H* Total Protein Albumin Globulin Albumin/Globulin Ratio Triglycerides Cholesterol LDL Cholesterol, Calc HDL Cholesterol Cholesterol/HDL Ratio TSH Ur Collection Type Clean Catch Urine Color Lt-Yellow Urine Clarity Clear Urine pH 6.5 Ur Specific [place] 1.014 Urine Protein 1+ A Urine Glucose (UA) 1+ A Urine Ketones Negative Urine Blood Negative Urine Nitrite Negative Urine Bilirubin Negative Urine Urobilinogen (Auto) Negative Ur Leukocyte Esterase Negative Urine RBC 2 Urine WBC 1 Ur Squamous Epith Cells < 1 Urine Bacteria None Hyaline Casts < 1 10/01/24 10/01/24 10/01/24 03:34 03:34 11:16 WBC 12.1 H RBC 4.82 Hgb 15.2 Hct 42.8 MCV 89 MCH 31.5 MCHC 35.5 RDW Std Deviation 43.9 Plt Count 158 Neut % (Auto) 65 Lymph % (Auto) 27 [place] % (Auto) 7 Eos % (Auto) 1 Baso % (Auto) 0 Neut # (Auto) 7.9 H Lymph # (Auto) 3.2 [place] # (Auto) 0.9 H Eos # (Auto) 0.1 Baso # (Auto) 0.0 Immature Gran # (Auto) 0.03 H Absolute Nucleated RBC 0.00 Immature Gran % 0 Nucleated RBC % 0 PT 11.4 INR 1.0 APTT 34.2 D 32.8 41.9 H Sodium 139 Potassium 4.2 Chloride 107 Carbon Dioxide 23.1 Anion Gap 9 BUN 20 Creatinine 1.2 Estim Creat Clear Calc 77.1 eGFR > 60 BUN/Creatinine Ratio [address] Glu mg/dL 137 H Hemoglobin A1c 6.4 H Calculated Osmolality 282 Calcium 9.2 Corrected Calcium 9.2 Phosphorus 3.8 Magnesium 2.1 Total Bilirubin 0.7 AST 29 ALT 45 Alkaline Phosphatase 61 Troponin I Total Protein 6.9 Albumin 4.1 Globulin 2.8 Albumin/Globulin Ratio 1.5 Triglycerides 94 Cholesterol 103 L LDL Cholesterol, Calc 46 HDL Cholesterol 38 L Cholesterol/HDL Ratio 2.7 L TSH 1.22 Ur Collection Type Urine Color Urine Clarity Urine pH Ur Specific [place] Urine Protein Urine Glucose (UA) Urine Ketones Urine Blood Urine Nitrite Urine Bilirubin Urine Urobilinogen (Auto) Ur Leukocyte Esterase Urine RBC Urine WBC Ur Squamous Epith Cells Urine Bacteria Hyaline Casts Quality Measures Quality Measures VTE prophylaxis Advance care planning discussed with:: patient Assessment & Plan Assessment Current Active Medications: Generic Name Dose Route Start Last Admin Trade Name Eugene PRN Reason Stop Dose Admin Acetaminophen 650 mg 09/30/24 13:48 Acetaminophen 325 Mg Tablet PO 10/30/24 13:47 Q6H PRN PAIN 1-3 OR FEVER > 101 Aspirin 81 mg 10/01/24 09:00 10/01/24 10:12 Aspirin Ec 81 Mg Tabec PO 10/31/24 08:59 81 mg DAILY JASON Administration Atorvastatin Calcium 40 mg 10/01/24 21:00 Atorvastatin Calcium 20 Mg Tablet PO 10/31/24 20:59 HS JASON Dextrose 25 ml 10/01/24 08:27 Dextrose 50%-Water Inj 50 Ml Syringe IV 10/31/24 08:26 Q15MIN PRN BG 50-70 responsive npo pt Dextrose 50 ml 10/01/24 08:27 Dextrose 50%-Water Inj 50 Ml Syringe IV 10/31/24 08:26 Q15MIN PRN BG <50 OR BG <70 & pt unresponsive Famotidine 20 mg 10/01/24 09:00 10/01/24 10:12 Famotidine Inj 10 Mg/Ml Vial 2 Ml IVP 10/31/24 08:59 20 mg BID JASON Administration Glucagon 1 mg 10/01/24 08:27 Glucagon Inj 1 Mg Vial IM Q15MIN PRN BG <70, and no IV access Amiodarone HCl/Dextrose 360 mg in 200 mls @ 16.667 mls/hr 09/30/24 16:51 10/01/24 10:15 Nexterone Ivpb IV 10/01/24 16:50 16.667 mls/hr .Q12H JASON Administration Heparin Sodium/Dextrose 25,000 unit in 250 mls @ 10 mls/hr 09/30/24 20:45 10/01/24 05:19 Heparin In D5w Ivpb IV 10/14/24 20:44 11.032 units/kg/hr .Q24H JASON 15.688 mls/hr Titration Protocol 7.032 UNITS/KG/HR Insulin Human Lispro 0 unit 10/01/24 11:30 Insulin Lispro (Admelog) 1 Unit/0.01 Ml Unit SC 10/31/24 11:29 AC JASON Protocol Metoprolol Succinate 25 mg 10/01/24 09:00 10/01/24 10:11 Metoprolol Succinate Xl 25 Mg Tabcr PO 10/31/24 08:59 25 mg QDAY JASON Administration Ondansetron HCl 4 mg 09/30/24 13:48 Ondansetron Inj 2 Mg/Ml Inj 2 Ml IV 10/30/24 13:47 Q6H PRN NAUSEA OR VOMITING Protocol Sennosides 2 tab 09/30/24 13:48 Senna Tablet PO 10/30/24 13:47 BID PRN CONSTIPATION Protocol Plan 73-year-old male with significant past medical history of hypertension, hyperlipidemia brought to the hospital with chief complaints of palpitations and dizziness since 3 hours. # Tachyarrhthmia, likely VT vs SVT status post emergent cardioversion--> Reverted to Normal sinus rhythm # Dilated cardiomyopathy, Ischemic vs non ischemic - Brought with chief complaints of palpitations and dizziness since 1 hour - Denies chest pain, shortness of breath, syncope, seizure like activity - EMS gave 2 doses of adenosine but not able to revert to sinus rhythm - Patient was brought to the ED where he was given shock as he was found to have tachyarrhythmia with heart rate of around 250 - Vitals at the time of admission are significant for blood pressure 147/100 mmHg, pulse rate 256 bpm - Labs at the time of admission were significant for WBC 11.7, BUN 16, creatinine 1.3, glucose 241, AST 59, ALT 59, BNP 136 - Urinalysis is positive for proteinuria 1+, glucosuria 1+ - Chest x-ray showed mild increase in cardiac contour - EKG done later showed normal sinus rhythm - In the ED, patient was given shock and later reverted to normal sinus rhythm Plan - Lipid profile, A1c, TSH - Continue on amiodarone drip until this bag and start on amiodarone 200mg BID after that. - Tele monitoring - Echo done at the bedside showed Dilated cardiomyopathy with EF around 20% - Cardiac cath tomorrow to look for CAD # NSTEMI type II # Mild CAD # HFrEF likely 2/2 substance abuse - Troponin at the time of admission is 0.086 - likely demand ischemia in the setting of tachyarrhythmia Cardiac cath revealed: 1. Non ischemic cardiomyopathy: LHC showed midl CAD with 20-30% stenosis of mid LAD, mid RCA and ramus intermedius branch. Rest of normal coronaries without any angiographically significant obstruction and few luminal irregularities. 2. LVEF was severely low at 20-25%. 3. LVEDP severely elevated at 31 mm hg. No significant transvalvular aortic gradient. 4. Moderately elevated right heart pressures with mean RA of 14 mm hg, mean PA of 44 mmhg and mean PCWP at 32 mm hg which is secondary to the severe left heart dysfunction and possible MICHELE component. Recommendations: 1. Recommend aggressive diuresis for HFrEF given severely elevated LVEDP at 31 mm hg. Bumex 1 mg IV BID for now. 2. Will need GDMT for the non-ischemic cardiomyopathy - Metoprolol XL, Entresto and eventually spirinolactone Further Recommendations: 1. Recommend aggressive medical management and aggressive risk factor modification. 2. Patient recommended not to lift more than 5 lbs for the next 7-10 days and follow up with me in my office in 7 days. # Hypertension - Patient doesnt remember the name of the blood pressure medication Plan - If blood pressure permits, start ARB Obesity - Lifestyle modification and dietary changes Thank you for the opportunity to participate cardiology team in this patient care. The patient's management plan was discussed with my attending physician MD Karsten Ying MD, PGY3 Attending Provider Attestation/Addendum I have personally seen and examined the patient separately on the above date of service and discussed the plan of care with the resident. I reviewed the resident Dr. Karsten Freeman consultation progress note and agree with the resident findings and plan in the note above and have also edited the documentation to reflect my findings and plan. Ramsey Thompson M.D. Interventional Cardiology
--- NOTE | 2024-10-01 13:37 | ESPR_ITS ---
Documentation for date of: 10/01/24 Subjective Subjective Interval history: Overnight, HR noted to be in 40s but stable without intervention. Patient seen and examined at bedside this AM. Scheduled for cardiac cath later today, NPO. Started on metoprolol succinate 25 mg, atorvastatin 40 mg, and ASA today. Still pending med rec, spoke to winston Bravo today who will try to get bottles from home. Labs and vitals were reviewed. WBC increased to 12.1 from 11.7, possibly reactive leukocytosis. Troponin downtrended yesterday. LDL 46. No further complaints at this time, denies chest pain and shortness of breath. Review of systems otherwise negative except what is mentioned above. Exam Vital Signs Temp Pulse Resp BP Pulse Ox O2 Del Method O2 Flow Rate 97.8 F 56 L 20 161/84 H 97 Room Air 10 10/01/24 13:10/01/24 13:10/01/24 13:10/01/24 13:10/01/24 13:10/01/24 13:09/30/24 11:00 Narrative Exam Physical Exam General: Awake and in no acute distress. Sitting at edge of bed and conversational. Non-toxic appearing. Son Lawrence was present. HEENT: Normocephalic, atraumatic, mucous membranes moist. Heart: Bradycardic. Regular rate and rhythm, normal S1 and S2, no murmurs appreciated. Lungs: Clear to auscultation with no wheezing or crackles. Abdomen: Soft, nondistended, nontender, positive bowel sounds. No guarding or rebound tenderness. Neurologic: Alert and oriented x3, no gross neurological deficit, and patient able to move all 4 extremities. Extremities: No lower extremity edema. Skin: No rash or ecchymoses. Objective Labs 10/03/24 05:57 10/03/24 05:57 Labs: Laboratory Results - last 24 hr 09/30/24 09/30/24 09/30/24 14:43 17:12 21:54 WBC RBC Hgb Hct MCV MCH MCHC RDW Std Deviation Plt Count Neut % (Auto) Lymph % (Auto) [place] % (Auto) Eos % (Auto) Baso % (Auto) Neut # (Auto) Lymph # (Auto) [place] # (Auto) Eos # (Auto) Baso # (Auto) Immature Gran # (Auto) Absolute Nucleated RBC Immature Gran % Nucleated RBC % PT INR APTT Sodium Potassium Chloride Carbon Dioxide Anion Gap BUN Creatinine Estim Creat Clear Calc eGFR BUN/Creatinine Ratio Glucose Estimated Ave Glu mg/dL Hemoglobin A1c Calculated Osmolality Calcium Corrected Calcium Phosphorus Magnesium Total Bilirubin AST ALT Alkaline Phosphatase Troponin I 1.036 H* D 0.989 H* Total Protein Albumin Globulin Albumin/Globulin Ratio Triglycerides Cholesterol LDL Cholesterol, Calc HDL Cholesterol Cholesterol/HDL Ratio TSH Ur Collection Type Clean Catch Urine Color Lt-Yellow Urine Clarity Clear Urine pH 6.5 Ur Specific [place] 1.014 Urine Protein 1+ A Urine Glucose (UA) 1+ A Urine Ketones Negative Urine Blood Negative Urine Nitrite Negative Urine Bilirubin Negative Urine Urobilinogen (Auto) Negative Ur Leukocyte Esterase Negative Urine RBC 2 Urine WBC 1 Ur Squamous Epith Cells < 1 Urine Bacteria None Hyaline Casts < 1 10/01/24 10/01/24 10/01/24 03:34 03:34 11:16 WBC 12.1 H RBC 4.82 Hgb 15.2 Hct 42.8 MCV 89 MCH 31.5 MCHC 35.5 RDW Std Deviation 43.9 Plt Count 158 Neut % (Auto) 65 Lymph % (Auto) 27 [place] % (Auto) 7 Eos % (Auto) 1 Baso % (Auto) 0 Neut # (Auto) 7.9 H Lymph # (Auto) 3.2 [place] # (Auto) 0.9 H Eos # (Auto) 0.1 Baso # (Auto) 0.0 Immature Gran # (Auto) 0.03 H Absolute Nucleated RBC 0.00 Immature Gran % 0 Nucleated RBC % 0 PT 11.4 INR 1.0 APTT 34.2 D 32.8 41.9 H Sodium 139 Potassium 4.2 Chloride 107 Carbon Dioxide 23.1 Anion Gap 9 BUN 20 Creatinine 1.2 Estim Creat Clear Calc 77.1 eGFR > 60 BUN/Creatinine Ratio 17 [address] Glu mg/dL 137 H Hemoglobin A1c 6.4 H Calculated Osmolality 282 Calcium 9.2 Corrected Calcium 9.2 Phosphorus 3.8 Magnesium 2.1 Total Bilirubin 0.7 AST 29 ALT 45 Alkaline Phosphatase 61 Troponin I Total Protein 6.9 Albumin 4.1 Globulin 2.8 Albumin/Globulin Ratio 1.5 Triglycerides 94 Cholesterol 103 L LDL Cholesterol, Calc 46 HDL Cholesterol 38 L Cholesterol/HDL Ratio 2.7 L TSH 1.22 Ur Collection Type Urine Color Urine Clarity Urine pH Ur Specific [place] Urine Protein Urine Glucose (UA) Urine Ketones Urine Blood Urine Nitrite Urine Bilirubin Urine Urobilinogen (Auto) Ur Leukocyte Esterase Urine RBC Urine WBC Ur Squamous Epith Cells Urine Bacteria Hyaline Casts Quality Measures Quality Measures VTE prophylaxis Advance care planning discussed with:: patient Assessment & Plan Assessment Current Active Medications: Generic Name Dose Route Start Last Admin Trade Name Freq PRN Reason Stop Dose Admin Acetaminophen 650 mg 09/30/24 13:48 Acetaminophen 325 Mg Tablet PO 10/30/24 13:47 Q6H PRN PAIN 1-3 OR FEVER > 101 Aspirin 81 mg 10/01/24 09:00 10/01/24 10:12 Aspirin Ec 81 Mg Tabec PO 10/31/24 08:59 81 mg DAILY JASON Administration Atorvastatin Calcium 40 mg 10/01/24 21:00 Atorvastatin Calcium 20 Mg Tablet PO 10/31/24 20:59 HS JASON Dextrose 25 ml 10/01/24 08:27 Dextrose 50%-Water Inj 50 Ml Syringe IV 10/31/24 08:26 Q15MIN PRN BG 50-70 responsive npo pt Dextrose 50 ml 10/01/24 08:27 Dextrose 50%-Water Inj 50 Ml Syringe IV 10/31/24 08:26 Q15MIN PRN BG <50 OR BG <70 & pt unresponsive Famotidine 20 mg 10/01/24 09:00 10/01/24 10:12 Famotidine Inj 10 Mg/Ml Vial 2 Ml IVP 10/31/24 08:59 20 mg BID JASON Administration Glucagon 1 mg 10/01/24 08:27 Glucagon Inj 1 Mg Vial IM Q15MIN PRN BG <70, and no IV access Amiodarone HCl/Dextrose 360 mg in 200 mls @ 16.667 mls/hr 09/30/24 16:51 10/01/24 10:15 Nexterone Ivpb IV 10/01/24 16:50 16.667 mls/hr .Q12H JASON Administration Heparin Sodium/Dextrose 25,000 unit in 250 mls @ 10 mls/hr 09/30/24 20:45 10/01/24 05:19 Heparin In D5w Ivpb IV 10/14/24 20:44 11.032 units/kg/hr .Q24H JASON 15.688 mls/hr Titration Protocol 7.032 UNITS/KG/HR Insulin Human Lispro 0 unit 10/01/24 11:30 Insulin Lispro (Admelog) 1 Unit/0.01 Ml Unit SC 10/31/24 11:29 AC JASON Protocol Metoprolol Succinate 25 mg 10/01/24 09:00 10/01/24 10:11 Metoprolol Succinate Xl 25 Mg Tabcr PO 10/31/24 08:59 25 mg QDAY JASON Administration Ondansetron HCl 4 mg 09/30/24 13:48 Ondansetron Inj 2 Mg/Ml Inj 2 Ml IV 10/30/24 13:47 Q6H PRN NAUSEA OR VOMITING Protocol Sennosides 2 tab 09/30/24 13:48 Senna Tablet PO 10/30/24 13:47 BID PRN CONSTIPATION Protocol Plan Patient is a 73-year-old male with a past medical history of hypertension, hyperlipidemia, kidney stones, tachyarrhythmia, who presented to the ED on 09/30 for sudden onset dizziness, later identified to be in v tach, now s/p cardioversion and pending cardiac catherization today. # V. tach - resolved # Elevated WBC, possible reactive leukocytosis # Possible HFrEF Patient has history of tachyarrhythmia, takes atenolol 50 mg at home, [facility] [place], recently atenolol was reduced to 25 mg, patient had acute onset of lightheadedness, called EMS, was found to have tachyarrhythmia, pulse rate more than 200, was given adenosine x 2 IV pushes by EMS en route to ER, in the emergency room found to have V. tach, requiring DC cardioversion. Spoke to nursing care attendant Who recommended starting patient on amiodarone drip, tentative plan for cardiac cath in the morning. CXR was unremarkable. Bedside echo showed Mildly dilated LV with severely reduced LV systolic function with an EF of 20 to 25%. Diastolic dysfunction present but cannot be graded. Mild RV dilatation with normal RV function. RVSP could not be measured because of insufficient TR jet. Mild MAC and mild MR. Mild aortic valve sclerosis without stenosis. Mildly dilated LA. Dilated IVC. No Pericardial Effusion. Dilated cardiomyopathy. WBC slightly increased to 12.1 from 11, likely reactive leukocytosis secondary to cardioversion and vtach. Low suspicion for sepsis. ? Continue amiodarone gtt. - Started on ASA 81 mg ? Cardiology consulted ? Cardiac cath in the a.m. per cardiology. -NPO since midnight - Pending echo, may consider starting patient on GDMT if confirmed low EF #Sinus bradycardia S/p DC cardioversion and amiodarone pushes, rhythm reverted to sinus bradycardia, heart rate in the high 50s, per cardiology. Continues to remain bradycardic but asymptomatic. ? Continue watchful observation. ? Continue amiodarone gtt. #NSTEMI type II - resolved Patient denied having any chest pain or pressure-like symptoms, but noted to have troponin elevation. Likely type II NC in the setting of supply/demand ischemia as well as cardioversion. Troponin downtrended to 0.989 in p.m. 09/30/24. ? Consider heparin drip if patient complains of chest pain. #History of hypertension #History of hyperlipidemia #History of kidney stones Pending med rec. Spoke to son Lawrence who will bring in patient's meds at some point. Per patient, was previously on diuretic (possible thiazide) and statin. - Started on Atorvastatin 40 mg daily - Started on Metoprolol XL 25mg daily #Pre-diabetes A1c 6.4. Not on any medications. Will not need any inpatient intervention at this time. Disposition: Telemetry, later home DVT prophylaxis: Heparin gtt GI prophylaxis: yes Diet: npo at midnight, resume after cath Lines: PIV CODE STATUS: Full Patient plan of care was discussed with the senior resident, Dr. Wong, and attending physician, Dr. Abebe. Tenisha Rosa, PGY-1 Attending Provider Attestation/Addendum I have discussed and was present for the essential components of the history, physical examination, diagnosis, and treatment plan with the resident. I agree with the patient's care as documented by the resident and amended herein by me. Sushil Abebe DO. Although this document has been carefully reviewed, there may still be some phonetic and other typographical errors. These errors are purely grammatical due to imperfections in the software program and should not be construed in any way to compromise the substance of the patient's medical care during this visit.
[2024-10-01 14:14] LABS: O2 Saturation (Cath Lab) 92 % (91-98); Puncture Site Aortic
[2024-10-01 14:15] LABS: O2 Saturation (Cath Lab) 65 % (91-98); Puncture Site Pulmonary Artery
--- NOTE | 2024-10-01 15:07 | PC.NURSE ---
Report given to Thien Bradford. Patient A&0 x4. VSS. Dressing to right wrist clean, dry, and intact. No signs of bleeding or hematoma.
--- NOTE | 2024-10-01 15:49 | ESOP_ITS ---
Cardiac Cath Procedure Procedure Name Date of procedure: 10/01/2024 HEALTH PROFESSOR: Ramsey Thompson MD PROCEDURE PERFORMED: 1. Left heart and right heart cardiac catheterization including right, left coronary angiograms and left ventriculogram - CPT 90241 2. Ultrasound-guided access of the right radial artery - CPT 70758 3. Conscious sedation for 30 minutes - CPT 22065 Procedure Narrative HISTORY AND INDICATIONS: A 73-year-old male with significant past medical history of hypertension, hyperlipidemia brought to the hospital with chief complaints of palpitations and dizziness. He was having tachyarhthymia VT vs SVT. Did not convert with ad enosine and had to do emergent cardioversion to NSR. No EKG noted and only telemetery strip noted and difficult to distinguish beteween SVT and VT. Patient had echocardiogram done, which showed new onset severe systolic heart failure with an EF of 20-25%. Patient also had elevated troponins were elevated. Patient was brought in for a cardiac catheterization. Patient did complain of chest pressure when he was having palpitations even after he converted to normal sinus rhythm and patient has new onset heart failure and was recommended for cardiac catheterization today. Discussed with patient risks, benefits and alternatives of performing left and right heart cardiac cathterization including the risks of bleeding, heart rate, stroke and with the procedure. Patient understands the risks and is willing to undergo the procedure. Consent provided for the same. H&P updated and consent was signed prior to the procedure DESCRIPTION OF PROCEDURE: The patient was brought to the cardiac catheterization lab and all asceptic precautions were followed. Patient was given 1 Mg of Versed and 50 mcg of fentanyl for moderate conscious sedation. 2 mL of lidocaine was given in the right wrist. The right radial artery was accessed via the ultrasound guidance as well as micropuncture technique. A 6 [place] glide sheath was introduced. Patient already had right antecubital vein access placed. Right antecubital vein access was cleaned appropriately and all aseptic precautions was followed and exchanged into a micropuncture catheter with the help of a micropuncture wire and then introduced and a 7 [place] sheath into the antecubital vein access with the help of a J-wire. A 7 [place] catheter was used to direct catheter into the right atrium with inflated balloon. Serial measurements of right atrium, right ventricle, pulmonary artery and pulmonary capillary wedge were taken severely with normal respiration as well as at end expiration as noted below. We then used a 6 [place] TIG 4 catheter to perform the left and right coronary angiogram as well as a left ventriculogram which showed the following findings. LHC findings: 1. Left ventricular ejection fraction was severely reduced at 20-25% without any regional wall motion abnormalities. LVEDP was elevated at 31 mmHg. There was no significant transvalvular aortic gradient. 2. Right dominant circulation. Left main artery is a large-caliber vessel without any significant stenosis with a ramus intermedius branch with 20% stenosis. 3. LAD is a large sized artery with 20-30% stenosis of mid segment. A medium size diagonal and does not show any significant disease. 4. LCx is a large sized artery with medium OM1 and small OM2 without any significant disease. 5. RCA is a large artery with 20-30% stenosis of mid segment. A medium RPDA and RPL without any significant disease. RHC findings: Mean right atrial pressure was 13 mmHg. Right atrial pressure was 16/15 mmHg. Right ventricular pressure was 16/15 mmHg. Pulmonary artery pressure was 46/22 mmHg with a mean of 33 mmHg. Mean pulmonary capillary wedge pressure was 21 mmHg. TPG was 12 mmHg Pulmonary artery PA saturation was 65%.? Arterial saturation was 98% on oxygen 3L NC Cardiac output was 4.86 L/min and cardiac index was normal at 1.96 L/min/m? A radial band was used to achieve the hemostasis of the right radial artery access and manual hemostasis for the right antecubital vein. Patient will be monitored in the cardiac aggregate conveyor operator for the next 2 to 3 hours and will be sent to the telemetry floor. Patient recommended to follow-up with me in the office within 7 days after discharge. Complications: None Specimens: None Blood loss: Estimated 5 ml Summary/findings: 1. Non ischemic cardiomyopathy: LHC showed mild CAD with 20-30% stenosis of mid LAD, mid RCA and ramus intermedius branch. Rest of normal coronaries without any angiographically significant obstruction and few luminal irregularities. 2. LVEF was severely low at 20-25%. 3. LVEDP severely elevated at 31 mm hg. No significant transvalvular aortic gradient. 4. Mild to moderately elevated right heart pressures with mean RA of 13 mm hg, mean PA of 33 mmhg and mean PCWP at 21 mm hg. Normal CO at 4.86 L/min and mildly low cardiac index at 1.96 L/min/m?. Recommendations: 1. Recommend aggressive diuresis given the elevated LVEDP as well as PCWP for the next 1 to 2 days. Continue to monitor renal function. 1. Recommend aggressive medical management and aggressive risk factor modification. Will need to start goal-directed medical therapy with metoprolol, Entresto and eventually spironolactone along with the diuretics. 2. Patient recommended not to lift more than 5 lbs for the next 7-10 days and follow up with me in my office in 7 days. Ramsey Thompson MD Interventional Cardiology.
[2024-10-01] MEDS: ATORVASTATIN CALCIUM 20 MG TABLET 40 MG PO (20:04)
[2024-10-02] VITALS (12 sets, daily range): BP systolic 131–154; BP diastolic 76–97; PULSE 51–82; RESP 17–96; TEMP 36.1–36.8; O2SAT 95–97; BMI 45.5
[2024-10-02 04:21] LABS: Amphetamine/Methamp Scrn,U Negative (Negative); Barbiturate Screen,Urine Negative (Negative); Benzodiazepines Screen,Urine Positive (Negative); Benzoylecgonine Screen, Ur Negative (Negative); Fentanyl Screen,Urine Positive (Negative); Opiate Screen,Urine Negative (Negative); THC Screen,Urine Negative (Negative)
[2024-10-02 07:29] LABS: Alanine Aminotransferase 39 U/L (10-49); Albumin, Serum 4.3 gm/dL (3.4-4.8); Albumin/Globulin Ratio 1.4 (1.2-2.2); Alkaline Phosphatase 62 U/L (46-116); Anion Gap 6 (7-16); Aspartate Amino Transferase 26 U/L (0-34); BUN/Creatinine Ratio 16 Ratio (12-20); Bilirubin,Total 1.7 mg/dL (0.3-1.2); Blood Urea Nitrogen 18 mg/dL (9-23); Calcium 9.5 mg/dL (8.3-10.6); Calcium (Corrected) 9.5 mg/dL (8.5-10.1); Carbon Dioxide 26.1 mMol/L (20.0-31.0); Chloride 106 mMol/L (98-107); Creatinine (Component) 1.1 mg/dL (0.6-1.3); Estimated Creatinine Clearance 82.0 mL/min (>60); Globulin 3.0 gm/dL (2.3-3.5); Glucose 128 mg/dL (74-106); Magnesium 2.2 mg/dL (1.6-2.6); Osmolality,Calculated 279 (275-295); Phosphorous 3.4 mg/dL (2.4-5.1); Potassium 4.0 mMol/L (3.4-5.1); Sodium 138 mMol/L (136-145); Total Protein 7.3 gm/dL (5.7-8.2); eGFR > 60 See Note
[2024-10-02 07:32] LABS: Basophils # (Auto) 0.0 Thou/mm3 (0.0-0.2); Basophils % (Auto) 0 % (0-2.5); Eosinophils # (Auto) 0.1 Thou/mm3 (0.0-0.5); Eosinophils % (Auto) 1 % (0-10); Hematocrit 44.9 % (41.0-53.0); Hemoglobin 15.5 g/dL (13.5-16.0); Immature Granulocytes Auto 0.03 Thou/mm3 (0.00-0.00); Lymphocytes # (Auto) 1.7 Thou/mm3 (1.0-4.8); Lymphocytes % (Auto) 17 % (10-50); Mean Corpuscular HGB Conc 34.5 g/dl (31.0-37.0); Mean Corpuscular Hemoglobin 31.6 pg (25.0-35.0); Mean Corpuscular Volume 92 fL (80-100); Monocytes # (Auto) 0.7 Thou/mm3 (0.0-0.8); Monocytes % (Auto) 7 % (0-12); Neutrophils # (Auto) 7.4 Thou/mm3 (1.8-7.7); Neutrophils % (Auto) 74 % (37-80); Nucleated Red Blood Cell # 0.00 Thou/mm3 (0.00-0.00); Nucleated Red Blood Cell % 0 /100 WBC (0); Platelet Count 135 Thou/mm3 (140-440); RDW Standard Deviation 45.0 fL (35.1-43.9); Red Blood Count 4.90 Miln/mm3 (4.50-5.90); White Blood Count 10.0 Thou/mm3 (3.8-10.6)
[2024-10-02] MEDS: FAMOTIDINE INJ 10 MG/ML VIAL 2 ML 20 MG IVP ×2 (08:14→20:22)
[2024-10-02] MEDS: METOPROLOL SUCCINATE XL 25 MG TABCR PO (08:14)
[2024-10-02] MEDS: ASPIRIN EC 81 MG TABEC PO (08:14)
[2024-10-02] MEDS: LOSARTAN POTASSIUM 25 MG TABLET PO (08:15)
[2024-10-02] MEDS: BUMETANIDE 0.5 MG TABLET 1 MG PO ×2 (08:16→20:22)
[2024-10-02 08:56] LABS: INR 1.0 (0.9-1.3); Partial Thromboplastin Time 28.3 Seconds (22.0-36.0); Prothrombin Time 11.4 Seconds (9.0-12.2)
--- NOTE | 2024-10-02 09:31 | PD.RESPRO ---
Documentation for date of: 10/02/24 Subjective Subjective Interval history: Continues to be bradycardic in 40s overnight, asymptomatic. Patient was sitting up in chair this AM, conversational. Labs and vitals were reviewed. WBC within normal limits. Platelet count continues to drop (165>158>135), hemoglobin stable. No further complaints at this time, denies chest pain, shortness of breath, blood in urine or stool. Tolerated cath well yesterday. Spoke to cardiology, will likely discharge tomorrow. Review of systems otherwise negative except what is mentioned above. Exam Vital Signs Temp Pulse Resp BP Pulse Ox O2 Del Method O2 Flow Rate 98.2 F 68 18 149/76 H 97 Room Air 10 10/02/24 08:00 10/02/24 08:16 10/02/24 08:00 10/02/24 08:16 10/02/24 08:00 10/02/24 08:00 09/30/24 11:00 Narrative Exam Physical Exam General: Awake and in no acute distress. Sitting up in chair, conversational. Non-toxic appearing. HEENT: Normocephalic, atraumatic, mucous membranes moist. Heart: Regular rate and rhythm, normal S1 and S2, no murmurs appreciated. Lungs: Clear to auscultation with no wheezing or crackles. Abdomen: Soft, nondistended, nontender, positive bowel sounds. No guarding or rebound tenderness. Neurologic: Alert and oriented x3, no gross neurological deficit, and patient able to move all 4 extremities. Extremities: Swollen right hand past wrist where dressing is wrapped. 1+ pitting edema in lower extremities bilaterally. Skin: No rash or ecchymoses. Objective Labs 10/03/24 05:57 10/03/24 05:57 Labs: Laboratory Results - last 24 hr 10/01/24 10/01/24 10/01/24 11:16 12:30 12:30 WBC RBC Hgb Hct MCV MCH MCHC RDW Std Deviation Plt Count Neut % (Auto) Lymph % (Auto) [place] % (Auto) Eos % (Auto) Baso % (Auto) Neut # (Auto) Lymph # (Auto) [place] # (Auto) Eos # (Auto) Baso # (Auto) Immature Gran # (Auto) Absolute Nucleated RBC Immature Gran % Nucleated RBC % PT INR APTT 41.9 H POC Blood Site Aortic Pulmonary Artery POC O2 Saturation 92 Sodium Potassium Chloride Carbon Dioxide Anion Gap BUN Creatinine Estim Creat Clear Calc eGFR BUN/Creatinine Ratio Glucose Calculated Osmolality Calcium Corrected Calcium Phosphorus Magnesium Total Bilirubin AST ALT Alkaline Phosphatase Total Protein Albumin Globulin Albumin/Globulin Ratio Urine Opiates Screen Urine Fentanyl Screen Ur Barbiturates Screen U Amphetamin/Meth Scrn U Benzodiazepines Scrn U Cocaine Metab Screen U Marijuana (THC) Screen 10/01/24 10/02/24 10/02/24 12:30 02:30 06:14 WBC 10.0 RBC 4.90 Hgb 15.5 Hct 44.9 MCV 92 MCH 31.6 MCHC 34.5 RDW Std Deviation 45.0 H Plt Count 135 L Neut % (Auto) 74 Lymph % (Auto) 17 [place] % (Auto) 7 Eos % (Auto) 1 Baso % (Auto) 0 Neut # (Auto) 7.4 Lymph # (Auto) 1.7 [place] # (Auto) 0.7 Eos # (Auto) 0.1 Baso # (Auto) 0.0 Immature Gran # (Auto) 0.03 H Absolute Nucleated RBC 0.00 Immature Gran % 0 Nucleated RBC % 0 PT 11.4 INR 1.0 APTT 28.3 D POC Blood Site POC O2 Saturation 65 L Sodium 138 Potassium 4.0 Chloride 106 Carbon Dioxide 26.1 Anion Gap 6 L BUN 18 Creatinine 1.1 Estim Creat Clear Calc 82.0 eGFR > 60 BUN/Creatinine Ratio 16 Glucose 128 H Calculated Osmolality 279 Calcium 9.5 Corrected Calcium 9.5 Phosphorus 3.4 Magnesium 2.2 Total Bilirubin 1.7 H D AST 26 ALT 39 Alkaline Phosphatase 62 Total Protein 7.3 Albumin 4.3 Globulin 3.0 Albumin/Globulin Ratio 1.4 Urine Opiates Screen Negative Urine Fentanyl Screen Positive A Ur Barbiturates Screen Negative U Amphetamin/Meth Scrn Negative U Benzodiazepines Scrn Positive A U Cocaine Metab Screen Negative U Marijuana (THC) Screen Negative Quality Measures Quality Measures VTE prophylaxis Advance care planning discussed with:: patient Assessment & Plan Assessment Current Active Medications: Generic Name Dose Route Start Last Admin Trade Name Freq PRN Reason Stop Dose Admin Acetaminophen 650 mg 09/30/24 13:48 Acetaminophen 325 Mg Tablet PO 10/30/24 13:47 Q6H PRN PAIN 1-3 OR FEVER > 101 Aspirin 81 mg 10/01/24 09:00 10/02/24 08:14 Aspirin Ec 81 Mg Tabec PO 08/01/25 08:59 81 mg DAILY JASON Administration Atorvastatin Calcium 40 mg 10/01/24 21:00 10/01/24 20:04 Atorvastatin Calcium 20 Mg Tablet PO 10/31/24 20:59 40 mg HS JASON Administration Bumetanide 1 mg 10/02/24 09:00 10/02/24 08:16 Bumetanide 0.5 Mg Tablet PO 11/01/24 08:59 1 mg BID JASON Administration Dextrose 25 ml 10/01/24 08:27 Dextrose 50%-Water Inj 50 Ml Syringe IV 10/31/24 08:26 Q15MIN PRN BG 50-70 responsive npo pt Dextrose 50 ml 10/01/24 08:27 Dextrose 50%-Water Inj 50 Ml Syringe IV 10/31/24 08:26 Q15MIN PRN BG <50 OR BG <70 & pt unresponsive Famotidine 20 mg 10/01/24 09:00 10/02/24 08:14 Famotidine Inj 10 Mg/Ml Vial 2 Ml IVP 10/31/24 08:59 20 mg BID JASON Administration Glucagon 1 mg 10/01/24 08:27 Glucagon Inj 1 Mg Vial IM Q15MIN PRN BG <70, and no IV access Insulin Human Lispro 0 unit 10/01/24 11:30 10/02/24 08:17 Insulin Lispro (Admelog) 1 Unit/0.01 Ml Unit SC 10/31/24 11:29 Not Given AC JASON Protocol Metoprolol Succinate 25 mg 10/01/24 09:00 10/02/24 08:14 Metoprolol Succinate Xl 25 Mg Tabcr PO 10/31/24 08:59 25 mg QDAY JASON Administration Ondansetron HCl 4 mg 09/30/24 13:48 Ondansetron Inj 2 Mg/Ml Inj 2 Ml IV 10/30/24 13:47 Q6H PRN NAUSEA OR VOMITING Protocol Sennosides 2 tab 09/30/24 13:48 Senna Tablet PO 10/30/24 13:47 BID PRN CONSTIPATION Protocol Plan Patient is a 73-year-old male with a past medical history of hypertension, hyperlipidemia, kidney stones, tachyarrhythmia, who presented to the ED on 09/30 for sudden onset dizziness, later identified to be in v tach s/p cardioversion and cardiac catherization 10/01. # V. tach - resolved # S/p cardiac catheterization # Reactive leukocytosis - resolved # Possible HFrEF Patient has history of tachyarrhythmia, takes atenolol 50 mg at home, follows with emergency room clinician in the [place] system in [place], recently atenolol was reduced to 25 mg, patient had acute onset of lightheadedness, called EMS, was found to have tachyarrhythmia, pulse rate more than 200, was given adenosine x 2 IV pushes by EMS en route to ER, in the emergency room found to have V. tach, requiring DC cardioversion. Spoke to emergency room clinician Who recommended starting patient on amiodarone drip, tentative plan for cardiac cath in the morning. CXR was unremarkable. Bedside echo showed mildly dilated LV with severely reduced LV systolic function with an EF of 20 to 25%. Dilated cardiomyopathy. WBC slightly increased to 12.1 from 11, likely reactive leukocytosis secondary to cardioversion and vtach, now resolved (WBC WNL) Cardiac cath 10/01 - non ischemic cardiomyopathy, LHC showed mild CAD with 20-30% stenosis of mid LAD, mid RCA and ramus intermedius branch. LVEF was severely low at 20-25%. LVEDP severely elevated. Moderately elevated right heart pressures with mean RA of 14 mm hg, mean PA of 44 mmhg and mean PCWP at 32 mm hg which is secondary to the severe left heart dysfunction and possible MICHELE component. - Continue ASA 81 mg - Continue Metoprolol XL 25mg daily - Start Entresto 1 tab BID - Eventually add spiranolactone as tolerated ? Cardiology consulted, appreciate recommendations - Cardiac diet #Sinus bradycardia S/p DC cardioversion and amiodarone pushes, rhythm reverted to sinus bradycardia, heart rate in the high 50s, per cardiology. Continues to remain bradycardic but asymptomatic. #NSTEMI type II - resolved Patient denied having any chest pain or pressure-like symptoms, but noted to have troponin elevation. Likely type II CO in the setting of supply/demand ischemia as well as cardioversion. Troponin downtrended to 0.989 in p.m. 09/30/24, likely demand ischemia in setting of tachyarrhythmia ? Consider heparin drip if patient complains of chest pain. #History of hypertension #History of hyperlipidemia #History of kidney stones Pending med rec. Spoke to son Lawrence who will bring in patient's meds at some point. Per patient, was previously on diuretic (possible thiazide) and statin. Pressures are still elevated during day, will slowly add GDMT per cardiology recommendations - GDMT as above - Continue Atorvastatin 40 mg daily #Pre-diabetes A1c 6.4. Not on any medications. Will not need any inpatient intervention at this time. Disposition: Telemetry, later home DVT prophylaxis: Heparin gtt GI prophylaxis: yes Diet: cardiac Lines: PIV CODE STATUS: Full Patient plan of care was discussed with the senior resident, Dr. Wong, and attending physician, Dr. Denney. Tenisha Rosa, PGY-1 Attending Provider Attestation/Addendum 73-year-old male with multiple comorbidities including hypertension, hyperlipidemia, tachyarrhythmia on atenolol who presented to the ER with palpitation and dizziness. In the ER, patient was noted to have heart rate more than 250 and subsequently received multiple doses of adenosine with no improvement and subsequently underwent electrical cardioversion with conversion to normal sinus rhythm. Subsequently patient was admitted and during course of hospitalization underwent cardiac catheterization with evidence of coronary artery disease however no significant lesions thus did not get any stent placement and noted to have heart failure with reduced EF with EF 20-25%. In addition, patient subsequently started on Bumex and metoprolol with improvement in heart rate and her cardiology will need 1 more day of IV diuretic therapy and anticipate discharge in the next 24 hours.I reviewed above note and agree with findings and plans. I have also personally examined the patient with medicine team and went over assessment and plan with medical team including international accounting manager and resident physician.
--- NOTE | 2024-10-02 13:00 | PC.CC ---
Noted patient started on Entresto, [facility]. Met w/ patient at bedside and confirmed he only has [facility] insurance for prescriptions. Provided patient with free trial card for Entresto to present to [facility]. Advised patient to follow-up with [facility] for continuation of Entresto.
--- NOTE | 2024-10-02 14:25 | ESPR_ITS ---
Documentation for date of: 10/02/24 Subjective Subjective Interval history: Patient seen and examined at the bedside this morning. He reported doing well. He was again curious to go home, but was told that he still need further diuresis. He denied any chest pain, SOB, dizziness, headache, orthopnea or PND, palpitations, abdominal pain, any leg swelling. His vitals were fairly stable with blood pressure 146/90, pulse rate 58, RR 21, saturating 96% on room air. CBC stable, coag panel stable, chemistry panel revealed potassium 4.0, bicarb 26.1, BUN 18, creatinine 1.1, blood sugar 128, magnesium 2.2, total bilirubin mildly increased to 1.7. The patient was placed on strict ins and outs, with fluid restriction of 1.5 L daily. The plan is to continue diuresing with 1 mg Bumex twice daily for at least 2 more days. Exam Vital Signs Temp Pulse Resp BP Pulse Ox O2 Del Method O2 Flow Rate 97.6 F 58 L 21 H 146/90 H 96 Room Air 10 10/02/24 12:00 10/02/24 12:10/02/24 12:10/02/24 12:10/02/24 12:10/02/24 12:09/30/24 11:00 Narrative Exam General: Elderly well nourished gentleman, alert and oriented x 3 HEENT: Normocephalic, atraumatic, mucous membranes moist. Heart: Regular rate and rhythm, no murmurs. Lungs: Clear to auscultation with no wheezing or crackles. Abdomen: Soft, nondistended, nontender, positive bowel sounds. ?No guarding or rebound tenderness. Neurologic: Alert and oriented x3, no gross neurological deficit, and patient able to move all 4 extremities. Extremities: B/L 1+ pitting pedal edema noted Skin: No rash or ecchymoses. Objective Labs 10/03/24 05:57 10/03/24 05:57 Labs: Laboratory Results - last 24 hr 10/02/24 10/02/24 02:30 06:14 WBC 10.0 RBC 4.90 Hgb 15.5 Hct 44.9 MCV 92 MCH 31.6 MCHC 34.5 RDW Std Deviation 45.0 H Plt Count 135 L Neut % (Auto) 74 Lymph % (Auto) 17 [place] % (Auto) 7 Eos % (Auto) 1 Baso % (Auto) 0 Neut # (Auto) 7.4 Lymph # (Auto) 1.7 [place] # (Auto) 0.7 Eos # (Auto) 0.1 Baso # (Auto) 0.0 Immature Gran # (Auto) 0.03 H Absolute Nucleated RBC 0.00 Immature Gran % 0 Nucleated RBC % 0 PT 11.4 INR 1.0 APTT 28.3 D Sodium 138 Potassium 4.0 Chloride 106 Carbon Dioxide 26.1 Anion Gap 6 L BUN 18 Creatinine 1.1 Estim Creat Clear Calc 82.0 eGFR > 60 BUN/Creatinine Ratio 16 Glucose 128 H Calculated Osmolality 279 Calcium 9.5 Corrected Calcium 9.5 Phosphorus 3.4 Magnesium 2.2 Total Bilirubin 1.7 H D AST 26 ALT 39 Alkaline Phosphatase 62 Total Protein 7.3 Albumin 4.3 Globulin 3.0 Albumin/Globulin Ratio 1.4 Urine Opiates Screen Negative Urine Fentanyl Screen Positive A Ur Barbiturates Screen Negative U Amphetamin/Meth Scrn Negative U Benzodiazepines Scrn Positive A U Cocaine Metab Screen Negative U Marijuana (THC) Screen Negative Quality Measures Quality Measures VTE prophylaxis Advance care planning discussed with:: patient Assessment & Plan Assessment Current Active Medications: Generic Name Dose Route Start Last Admin Trade Name Freq PRN Reason Stop Dose Admin Acetaminophen 650 mg 09/30/24 13:48 Acetaminophen 325 Mg Tablet PO 10/30/24 13:47 Q6H PRN PAIN 1-3 OR FEVER > 101 Aspirin 81 mg 10/01/24 09:00 10/02/24 08:14 Aspirin Ec 81 Mg Tabec PO 10/31/24 08:59 81 mg DAILY JASON Administration Atorvastatin Calcium 40 mg 10/01/24 21:00 10/01/24 20:04 Atorvastatin Calcium 20 Mg Tablet PO 10/31/24 20:59 40 mg HS JASON Administration Bumetanide 1 mg 10/02/24 09:00 10/02/24 08:16 Bumetanide 0.5 Mg Tablet PO 11/01/24 08:59 1 mg BID JASON Administration Dextrose 25 ml 10/01/24 08:27 Dextrose 50%-Water Inj 50 Ml Syringe IV 10/31/24 08:26 Q15MIN PRN BG 50-70 responsive npo pt Dextrose 50 ml 10/01/24 08:27 Dextrose 50%-Water Inj 50 Ml Syringe IV 10/31/24 08:26 Q15MIN PRN BG <50 OR BG <70 & pt unresponsive Famotidine 20 mg 10/01/24 09:00 10/02/24 08:14 Famotidine Inj 10 Mg/Ml Vial 2 Ml IVP 10/31/24 08:59 20 mg BID JASON Administration Glucagon 1 mg 10/01/24 08:27 Glucagon Inj 1 Mg Vial IM Q15MIN PRN BG <70, and no IV access Insulin Human Lispro 0 unit 10/01/24 11:30 10/02/24 11:30 Insulin Lispro (Admelog) 1 Unit/0.01 Ml Unit SC 10/31/24 11:29 Not Given AC JASON Protocol Metoprolol Succinate 25 mg 10/01/24 09:00 10/02/24 08:14 Metoprolol Succinate Xl 25 Mg Tabcr PO 10/31/24 08:59 25 mg QDAY JASON Administration Ondansetron HCl 4 mg 09/30/24 13:48 Ondansetron Inj 2 Mg/Ml Inj 2 Ml IV 10/30/24 13:47 Q6H PRN NAUSEA OR VOMITING Protocol Sacubitril/Valsartan 1 tab 10/03/24 09:00 Sacubitril 24 Mg/Valsartan 26 Mg Tablet PO 11/02/24 08:59 BID JASON Sennosides 2 tab 09/30/24 13:48 Senna Tablet PO 10/30/24 13:47 BID PRN CONSTIPATION Protocol Plan 73-year-old male with significant past medical history of hypertension, hyperlipidemia brought to the hospital with chief complaints of palpitations and dizziness since 3 hours. # Tachyarrhthmia, likely VT vs SVT status post emergent cardioversion--> Reverted to Normal sinus rhythm # Dilated cardiomyopathy, nonischemic - Brought with chief complaints of palpitations and dizziness since 1 hour - Denies chest pain, shortness of breath, syncope, seizure like activity - EMS gave 2 doses of adenosine but not able to revert to sinus rhythm - Patient was brought to the ED where he was given shock as he was found to have tachyarrhythmia with heart rate of around 250 - Vitals at the time of admission are significant for blood pressure 147/100 mmHg, pulse rate 256 bpm - Labs at the time of admission were significant for WBC 11.7, BUN 16, creatinine 1.3, glucose 241, AST 59, ALT 59, BNP 136 - Urinalysis is positive for proteinuria 1+, glucosuria 1+ - Chest x-ray showed mild increase in cardiac contour - EKG done later showed normal sinus rhythm - In the ED, patient was given shock and later reverted to normal sinus rhythm - A1c 6.4, TSH 1.22, LDL 103 Plan - Tele monitoring # NSTEMI type II # Mild CAD # HFrEF, likely 2/2 arrhythmia 2/2 dilated cardiomyopathy, Pt never has any prior history of drug abuse - Troponin at the time of admission is 0.086 - likely demand ischemia in the setting of tachyarrhythmia Cardiac cath on 09/30/2024 revealed: 1. Non ischemic cardiomyopathy: LHC showed mild CAD with 20-30% stenosis of mid LAD, mid RCA and ramus intermedius branch. Rest of normal coronaries without any angiographically significant obstruction and few luminal irregularities. 2. LVEF was severely low at 20-25%. 3. LVEDP severely elevated at 31 mm hg. No significant transvalvular aortic gradient. 4. Moderately elevated right heart pressures with mean RA of 14 mm hg, mean PA of 44 mmhg and mean PCWP at 27 mm hg which is secondary to the severe left heart dysfunction and possible MICHELE component. Recommendations: 1. Recommend aggressive diuresis for HFrEF given severely elevated LVEDP at 31 mm hg. Bumex 1 mg IV BID for now. 2. Will need GDMT for the non-ischemic cardiomyopathy - Metoprolol XL, Entresto and eventually spirinolactone Further Recommendations: 1. Recommend aggressive medical management and aggressive risk factor modification. 2. Patient recommended not to lift more than 5 lbs for the next 7-10 days and follow up with me in my office in 7 days. Will require at least 2 days of aggressive diuresis in the hospital, starting from 10/01/2024. # Hypertension - Patient doesnt remember the name of the blood pressure medication Plan - If blood pressure permits, start Entresto as the goal is to begin GDMT # Obesity - Lifestyle modification and dietary changes Thank you for the opportunity to participate cardiology team in this patient care. The patient's management plan was discussed with my attending physician MD Karsten Ying MD, PGY3 Attending Provider Attestation/Addendum I have personally seen and examined the patient separately on the above date of service and discussed the plan of care with the resident. I reviewed the resident Dr. Karsten Freeman consultation progress note and agree with the resident findings and plan in the note above and have also edited the documentation to reflect my findings and plan. Left and right heart cardiac catheterization performed to the patient on 10/01/2024 showed only mild CAD indicating patient has nonischemic dilated cardiomyopathy. Unknown etiology for now. Recommend aspirin statin and beta- ilsa for the patient. Right heart cardiac catheterization showed elevated LVEDP as well as elevated pulmonary capillary wedge pressure at 31 and 27 mm respectively. Recommended aggressive diuresis and patient was diuresed with Bumex 1 mg twice daily. Patient has been diuresing well and only has 1+ edema bilaterally. Recommend to continue diuresis for 1 more day and patient should be discharged on Bumex 1 mg once daily. Patient will need goal-directed medical therapy with metoprolol XL as well as Entresto for now and eventually spironolactone as outpatient his renal function and blood pressure continue to be stable. Patient did present with tachyarrhythmia on admission and mostly has possible VT given his severely low ejection fraction and the differential diagnosis SVT. Patient was treated with amiodarone drip as well as the amiodarone IV and will transition to oral amiodarone 200 mg twice daily for now and eventually can be transition to amiodarone 200 mg daily as outpatient. Recommend to keep potassium greater than 4 and magnesium greater than 2.0 at all times.Patient recommended to follow-up with me in the clinic in 1 week after discharge for continued treatment of his severe systolic congestive heart failure as well as possible VT with nonischemic cardiomyopathy Ramsey Thompson M.D. Interventional Cardiology
--- NOTE | 2024-10-02 16:00 | PC.SS ---
SS met with patient regarding his d/c plan.? Pt is alert/oriented.? Pt was admitted for Arrythmia.? Pt confirmed demographic and contact information is correct on facesheet.? Pt resides with alone.? Pt ambulates independently without assistance or DME.? Pt is ok with all ADLs.? Patient?s pharmacy of choice is [facility].? Pt named her son, Sonu Bowen, phone# [phone] medical decision maker if he is unable.? Patient?s choice is to return home upon d/c.? Family will provide transportation home. D/C plan:? Return home Next of Kin:? Sonu Bowen, son, phone# [phone] PCP:[facility] Address:? Correct on facesheet
[2024-10-02] MEDS: ATORVASTATIN CALCIUM 20 MG TABLET 40 MG PO (20:22)
[2024-10-03] VITALS (7 sets, daily range): BP systolic 124–174; BP diastolic 73–98; PULSE 50–61; RESP 17–23; TEMP 36.2–36.3; O2SAT 95–97; BMI 44.6
[2024-10-03 06:38] LABS: Basophils # (Auto) 0.0 Thou/mm3 (0.0-0.2); Basophils % (Auto) 0 % (0-2.5); Eosinophils # (Auto) 0.2 Thou/mm3 (0.0-0.5); Eosinophils % (Auto) 2 % (0-10); Hematocrit 43.9 % (41.0-53.0); Hemoglobin 15.0 g/dL (13.5-16.0); Immature Granulocytes Auto 0.02 Thou/mm3 (0.00-0.00); Lymphocytes # (Auto) 1.7 Thou/mm3 (1.0-4.8); Lymphocytes % (Auto) 20 % (10-50); Mean Corpuscular HGB Conc 34.2 g/dl (31.0-37.0); Mean Corpuscular Hemoglobin 31.7 pg (25.0-35.0); Mean Corpuscular Volume 93 fL (80-100); Monocytes # (Auto) 0.7 Thou/mm3 (0.0-0.8); Monocytes % (Auto) 8 % (0-12); Neutrophils # (Auto) 6.1 Thou/mm3 (1.8-7.7); Neutrophils % (Auto) 70 % (37-80); Nucleated Red Blood Cell # 0.00 Thou/mm3 (0.00-0.00); Nucleated Red Blood Cell % 0 /100 WBC (0); Platelet Count 128 Thou/mm3 (140-440); RDW Standard Deviation 44.7 fL (35.1-43.9); Red Blood Count 4.73 Miln/mm3 (4.50-5.90); White Blood Count 8.7 Thou/mm3 (3.8-10.6)
[2024-10-03 07:00] LABS: Alanine Aminotransferase 36 U/L (10-49); Albumin, Serum 4.4 gm/dL (3.4-4.8); Albumin/Globulin Ratio 1.5 (1.2-2.2); Alkaline Phosphatase 64 U/L (46-116); Anion Gap 11 (7-16); Aspartate Amino Transferase 26 U/L (0-34); BUN/Creatinine Ratio 16 Ratio (12-20); Bilirubin,Total 1.9 mg/dL (0.3-1.2); Blood Urea Nitrogen 19 mg/dL (9-23); Calcium 9.2 mg/dL (8.3-10.6); Calcium (Corrected) 9.2 mg/dL (8.5-10.1); Carbon Dioxide 27.7 mMol/L (20.0-31.0); Chloride 102 mMol/L (98-107); Creatinine (Component) 1.2 mg/dL (0.6-1.3); Estimated Creatinine Clearance 74.3 mL/min (>60); Globulin 2.9 gm/dL (2.3-3.5); Glucose 123 mg/dL (74-106); Magnesium 2.1 mg/dL (1.6-2.6); Osmolality,Calculated 284 (275-295); Phosphorous 2.9 mg/dL (2.4-5.1); Potassium 3.9 mMol/L (3.4-5.1); Sodium 141 mMol/L (136-145); Total Protein 7.3 gm/dL (5.7-8.2); eGFR > 60 See Note
[2024-10-03] MEDS: FAMOTIDINE INJ 10 MG/ML VIAL 2 ML 20 MG IVP (08:43)
[2024-10-03] MEDS: ASPIRIN EC 81 MG TABEC PO (08:45)
[2024-10-03] MEDS: METOPROLOL SUCCINATE XL 25 MG TABCR PO (08:45)
[2024-10-03] MEDS: BUMETANIDE 0.5 MG TABLET 1 MG PO (08:46)
--- NOTE | 2024-10-03 09:55 | ESDS_ITS ---
<Statement entered by Priscila Denney MD - 10/09/24 14:54> I reviewed above note and agree with findings and plans. I have also personally examined the patient with medicine team and went over assessment and plan with medical team including wireless internet installer and resident physician. Planned Discharge Date 10/03/24 DS: Providers Provider Date of admission: 09/30/24 13:49 Primary care physician: Physician No Primary/Family Admitting Provider: Dave Abebe DO Attending Provider on Admission: Priscila Denney MD Consults: 09/30/24 13:51 Consult to Cardiology Stat Comment: Consulting Provider: Ramsey Thompson 10/01/24 08:27 Referral Registered Dietitian Routine Comment: Attending Provider on DC: RESIDENT [place] Discharging Provider: RESIDENT [place] DS: Diagnosis Problem List Completed Was Problem List Reviewed/Reconciled?: Yes Hospital Course Hospital Course Hospital course: Summary: Patient is a 73-year-old male with past medical history of hypertension and hyperlipidemia who presented to the ED on 09 30 with sudden onset dizziness later identified to be in ventral tachycardia. Admitted for further cardiac workup, found to have mild coronary artery disease and HFrEF likely secondary to arrhythmia and dilated cardiomyopathy. S/p cardioversion cardiac catheterization on 10/01/24. ED Course: Initial vitals in the emergency room BP 147/100, pulse documented to 56/min, respiratory 24, afebrile. Saturating 99% on room air. CBC shows mild leukocytosis WBC 11.7, hemoglobin 15.9, platelets 165, coagulation profile within normal limits, normal sodium potassium, BUN and creatinine, within normal limits, glucose 241, mild transaminase situs, troponin elevation noted, urin alysis negative for UTI. ER provider spoke to instrument worker on-call, the patient was started on amiodarone drip. IV fluid boluses were given. Reason for hospitalization: As mentioned above patient was admitted for further cardiac workup after episode of ventricular tachycardia. Cardiology was consulted. Bedside echo showed mildly dilated LV with severely reduced LV syst olic function with an EF of 20 to 25% and dilated cardiomyopathy. Recommended amiodarone drip and catheterization, which showed non ischemic cardiomyopathy, LHC showed mild CAD with 20-30% stenosis of mid LAD, mid RCA and ramus intermedius branch. LVEF was severely low at 20-25%. LVEDP severely elevated. Moderately elevated right heart pressures with mean RA of 14 mm hg, mean PA of 44 mmhg and mean PCWP at 32 mm hg which is secondary to the severe left heart dysfunction and possible MICHELE component. Patient tolerated procedure well. Per cardiology recommendations, patient was started on ASA 8 mg, Metoprolol, Entresto, amiodarone, and atorvastatin. Will start spiranolactone in outpatient setting. Of note patient had asymptomatic sinus bradycardia in PM. No chest pain or shortness of breath during stay. Patient was safely discharged home. Discharge Recommendations: -please take amiodarone for rate control of your heart -Start new medication of Atorvastatin, Entresto, and Metoprolol, and bumex for heart failure -monitor weight and limit salt intake to 2 liters -Please follow up with your primary care provider within one week of discharge -If your symptoms worsen,please seek immediate medical attention and return to your nearest emergency room -If you do not have a primary care provider, you may follow up at the [facility] at [address] [place] [address] . [address], [place] [address], Hospital Diagnoses: # V. tach - resolved # S/p cardiac catheterization # Reactive leukocytosis - resolved # Possible HFrEF #Sinus bradycardia #NSTEMI type II - resolved #History of hypertension #History of hyperlipidemia #History of kidney stones #Pre-diabetes Disposition: Safe discharge to home. Time Spent with Patient Time attestation: Total time spent providing and/or coordinating discharge services: at least 30 minutes of care coordination Time spent: Greater than 30 minutes Exam Vital Signs Temp Pulse Resp BP Pulse Ox O2 Del Method O2 Flow Rate 97.3 F 57 L 17 124/73 96 Room Air 10 10/03/24 08:00 10/03/24 08:46 10/03/24 08:00 10/03/24 08:46 10/03/24 08:00 10/03/24 08:00 09/30/24 11:00 Narrative Exam Physical Exam General: Awake and in no acute distress. Sitting up in chair, conversational. Non-toxic appearing. HEENT: Normocephalic, atraumatic, mucous membranes moist. Heart: Regular rate and rhythm, normal S1 and S2, no murmurs appreciated. Lungs: Clear to auscultation with no wheezing or crackles. Abdomen: Soft, nondistended, nontender, positive bowel sounds. No guarding or rebound tenderness. Neurologic: Alert and oriented x3, no gross neurological deficit, and patient able to move all 4 extremities. Extremities: 1+ pitting edema in lower extremities bilaterally. Skin: No rash or ecchymoses. Discharge Plan Plan Patient Disposition: HOME (Self Care) Patient condition on transfer: Stable Care Plan Goals: Instructions: -please take amiodarone for rate control of your heart -Start new medication of Atorvastatin, Entresto, and Metoprolol, and bumex for heart failure -monitor weight and limit salt intake to 2 liters -Please follow up with your primary care provider within one week of discharge -If your symptoms worsen,please seek immediate medical attention and return to your nearest emergency room -If you do not have a primary care provider, you may follow up at the [facility] at [address] [place] [address] [address], [place] [address], Prescriptions/Referrals Prescriptions/Med Rec: New atorvastatin 20 mg Tablet 40 mg PO HS 30 Days Qty: 60 0RF metoprolol succinate 25 mg Tablet Extended Release 24 Hr 25 mg PO QDAY 30 Days Qty: 30 0RF Entresto 24-26 mg Tablet 1 tab PO BID 30 Days Qty: 60 0RF bumetanide 1 mg tablet 1 mg PO QDAY Qty: 30 1RF aspirin [Suha Chewable Aspirin] 81 mg tablet,chewable 81 mg PO QDAY 30 Days Qty: 30 1RF amiodarone 200 mg tablet 200 mg PO BID 30 Days Qty: 60 0RF metformin 500 mg tablet extended release 24 hr 500 mg PO QDAY 30 Days Qty: 30 1RF Discontinued atenolol 25 mg tablet 25 mg PO QAM Referrals: No Primary/Family,Physician [Primary Care Provider] - Patient/Caregiver Discharge Instructions Education Materials: Anatomy of the Male Urinary Tract, Cardiomyopathy Dc Print Language: Danish Stand Alone Forms: Isabel Award Info., Patient Portal Info Letter Discharge Order Discharge Orders: Discharge (Routine); Ordered 10/03/24 Ordered By: Dacia Vargas Quality Discharge Quality Measures VTE prophylaxis
--- NOTE | 2024-10-03 11:24 | PD.RESPRO ---
Documentation for date of: 10/03/24 Subjective Subjective Interval history: Patient seen and examined at the bedside this morning. He reported doing well. He was again curious to go home. He denied any chest pain, SOB, dizziness, headache, orthopnea or PND, palpitations, abdominal pain, any leg swelling. His vitals were fairly stable with blood pressure 124/73, heart rate 57, RR 17, saturating 96% on room air. Potassium is stable at 3.9, BUN/creatinine stable at 19 and 1.2, magnesium 2.1, bilirubin mildly increased to 1.9 from 1.7 yesterday. CBC is stable. Physical exam is still significant for 2+ bilateral lower limb edema. Recommended to continue the patient on Bumex, amiodarone, Aspirin, metoprolol succinate, Entresto. Consider adding metformin for new onset diabetes mellitus. Follow-up with Dr. Thompson within 1 week of discharge. Exam Vital Signs Temp Pulse Resp BP Pulse Ox O2 Del Method O2 Flow Rate 97.3 F 57 L 17 124/73 96 Room Air 10 10/03/24 08:00 10/03/24 08:46 10/03/24 08:00 10/03/24 08:46 10/03/24 08:00 10/03/24 08:00 09/30/24 11:00 Narrative Exam General: Elderly well nourished gentleman, alert and oriented x 3 HEENT: Normocephalic, atraumatic, mucous membranes moist. Heart: Regular rate and rhythm, no murmurs. Lungs: Clear to auscultation with no wheezing or crackles. Abdomen: Soft, nondistended, nontender, positive bowel sounds. ?No guarding or rebound tenderness. Neurologic: Alert and oriented x3, no gross neurological deficit, and patient able to move all 4 extremities. Extremities: B/L 1-2+ pitting pedal edema noted Skin: No rash or ecchymoses. Objective Labs 10/03/24 05:57 10/03/24 05:57 Labs: Laboratory Results - last 24 hr 10/03/24 05:57 WBC 8.7 RBC 4.73 Hgb 15.0 Hct 43.9 MCV 93 MCH 31.7 MCHC 34.2 RDW Std Deviation 44.7 H Plt Count 128 L Neut % (Auto) 70 Lymph % (Auto) 20 [place] % (Auto) 8 Eos % (Auto) 2 Baso % (Auto) 0 Neut # (Auto) 6.1 Lymph # (Auto) 1.7 [place] # (Auto) 0.7 Eos # (Auto) 0.2 Baso # (Auto) 0.0 Immature Gran # (Auto) 0.02 H Absolute Nucleated RBC 0.00 Immature Gran % 0 Nucleated RBC % 0 Sodium 141 Potassium 3.9 Chloride 102 Carbon Dioxide 27.7 Anion Gap 11 BUN 19 Creatinine 1.2 Estim Creat Clear Calc 74.3 eGFR > 60 BUN/Creatinine Ratio 16 Glucose 123 H Calculated Osmolality 284 Calcium 9.2 Corrected Calcium 9.2 Phosphorus 2.9 Magnesium 2.1 Total Bilirubin 1.9 H AST 26 ALT 36 Alkaline Phosphatase 64 Total Protein 7.3 Albumin 4.4 Globulin 2.9 Albumin/Globulin Ratio 1.5 Quality Measures Quality Measures VTE prophylaxis Advance care planning discussed with:: patient Assessment & Plan Assessment Current Active Medications: Generic Name Dose Route Start Last Admin Trade Name Freq PRN Reason Stop Dose Admin Acetaminophen 650 mg 09/30/24 13:48 Acetaminophen 325 Mg Tablet PO 10/30/24 13:47 Q6H PRN PAIN 1-3 OR FEVER > 101 Aspirin 81 mg 10/01/24 09:00 10/03/24 08:45 Aspirin Ec 81 Mg Tabec PO 10/31/24 08:59 81 mg DAILY JASON Administration Atorvastatin Calcium 40 mg 10/01/24 21:00 10/02/24 20:22 Atorvastatin Calcium 20 Mg Tablet PO 10/31/24 20:59 40 mg HS JASON Administration Bumetanide 1 mg 10/02/24 09:00 10/03/24 08:46 Bumetanide 0.5 Mg Tablet PO 11/01/24 08:59 1 mg BID JASON Administration Dextrose 25 ml 10/01/24 08:27 Dextrose 50%-Water Inj 50 Ml Syringe IV 10/31/24 08:26 Q15MIN PRN BG 50-70 responsive npo pt Dextrose 50 ml 10/01/24 08:27 Dextrose 50%-Water Inj 50 Ml Syringe IV 10/31/24 08:26 Q15MIN PRN BG <50 OR BG <70 & pt unresponsive Famotidine 20 mg 10/01/24 09:00 10/03/24 08:43 Famotidine Inj 10 Mg/Ml Vial 2 Ml IVP 10/31/24 08:59 20 mg BID JASON Administration Glucagon 1 mg 10/01/24 08:27 Glucagon Inj 1 Mg Vial IM Q15MIN PRN BG <70, and no IV access Insulin Human Lispro 0 unit 10/01/24 11:30 10/03/24 07:30 Insulin Lispro (Admelog) 1 Unit/0.01 Ml Unit SC 10/31/24 11:29 Not Given AC JASON Protocol Metoprolol Succinate 25 mg 10/01/24 09:00 10/03/24 08:45 Metoprolol Succinate Xl 25 Mg Tabcr PO 10/31/24 08:59 25 mg QDAY JASON Administration Ondansetron HCl 4 mg 09/30/24 13:48 Ondansetron Inj 2 Mg/Ml Inj 2 Ml IV 10/30/24 13:47 Q6H PRN NAUSEA OR VOMITING Protocol Sacubitril/Valsartan 1 tab 10/03/24 09:00 10/03/24 08:45 Sacubitril 24 Mg/Valsartan 26 Mg Tablet PO 11/02/24 08:59 1 tab BID JASON Administration Sennosides 2 tab 09/30/24 13:48 Senna Tablet PO 10/30/24 13:47 BID PRN CONSTIPATION Protocol Plan 73-year-old male with significant past medical history of hypertension, hyperlipidemia brought to the hospital with chief complaints of palpitations and dizziness since 3 hours. # Tachyarrhthmia, likely VT vs SVT status post emergent cardioversion--> Reverted to Normal sinus rhythm # Dilated cardiomyopathy, nonischemic - Brought with chief complaints of palpitations and dizziness since 1 hour - Denies chest pain, shortness of breath, syncope, seizure like activity - EMS gave 2 doses of adenosine but not able to revert to sinus rhythm - Patient was brought to the ED where he was given shock as he was found to have tachyarrhythmia with heart rate of around 250 - Vitals at the time of admission are significant for blood pressure 147/100 mmHg, pulse rate 256 bpm - Labs at the time of admission were significant for WBC 11.7, BUN 16, creatinine 1.3, glucose 241, AST 59, ALT 59, BNP 136 - Urinalysis is positive for proteinuria 1+, glucosuria 1+ - Chest x-ray showed mild increase in cardiac contour - EKG done later showed normal sinus rhythm - In the ED, patient was given shock and later reverted to normal sinus rhythm - A1c 6.4, TSH 1.22, LDL 103 Plan - Amiodarone 200 Mg twice daily - Tele monitoring # NSTEMI type II # Mild CAD # HFrEF, likely 2/2 arrhythmia 2/2 dilated cardiomyopathy, Pt never has any prior history of drug abuse - Troponin at the time of admission is 0.086 - likely demand ischemia in the setting of tachyarrhythmia Cardiac cath on 09/30/2024 revealed: 1. Non ischemic cardiomyopathy: LHC showed mild CAD with 20-30% stenosis of mid LAD, mid RCA and ramus intermedius branch. Rest of normal coronaries without any angiographically significant obstruction and few luminal irregularities. 2. LVEF was severely low at 20-25%. 3. LVEDP severely elevated at 31 mm hg. No significant transvalvular aortic gradient. 4. Moderately elevated right heart pressures with mean RA of 14 mm hg, mean PA of 44 mmhg and mean PCWP at 27 mm hg which is secondary to the severe left heart dysfunction and possible MICHELE component. Recommendations: 1. Recommend aggressive diuresis for HFrEF given severely elevated LVEDP at 31 mm hg. Bumex 1 mg daily now. 2. Will need GDMT for the non-ischemic cardiomyopathy - Metoprolol XL, Entresto and eventually spirinolactone 3. aspirin 81 Mg daily. Further Recommendations: 1. Recommend aggressive medical management and aggressive risk factor modification. 2. Patient recommended not to lift more than 5 lbs for the next 7-10 days and follow up with me in my office in 7 days. # Hypertension - Patient doesnt remember the name of the blood pressure medication Plan - Maintain normotension, along with GDMT # Obesity - Lifestyle modification and dietary changes Thank you for the opportunity to participate cardiology team in this patient care. Recommended to follow-up in the cardiology clinic within 1 week of discharge. The patient's management plan was discussed with my attending physician MD Karsten Ying MD, PGY3 Attending Provider Attestation/Addendum I reviewed the resident Dr. Karsten Freeman consultation progress note and agree with the resident findings and plan in the note above and have also edited the documentation to reflect my findings and plan. Ramsey Thompson M.D. Interventional Cardiology
--- NOTE | 2024-10-03 16:26 | PC.SS ---
SS unable to meet with pt before discharge; confirmed pt had everything needed before going home
== END 2024-10-03 13:03 | disposition home or self-care (01) | DRG 280 ==
LOC: SERX 12:06 → SERHOLD 14:02 → S2NX 10-01 00:16
PROVIDERS: Internal Medicine Cardiovascular Disease; Student in an Organized Health Care Education/Training Program; Admitting Provider Student in an Organized Health Care Education/Training Program; Emergency Provider Emergency Medicine; Visit Provider Internal Medicine
DX: I47.20 Ventricular tachycardia, unspecified (principal); I50.21 Acute systolic (congestive) heart failure; I21.A1 Myocardial infarction type 2; Z68.42 Body mass index [BMI] 45.0-49.9, adult; I42.0 Dilated cardiomyopathy; R57.9 Shock, unspecified; Z68.41 Body mass index [BMI] 40.0-44.9, adult; I11.0 Hypertensive heart disease with heart failure; Z87.442 Personal history of urinary calculi; E78.5 Hyperlipidemia, unspecified; R00.1 Bradycardia, unspecified; E66.9 Obesity, unspecified; E87.5 Hyperkalemia; I25.10 Atherosclerotic heart disease of native coronary artery without angina pectoris; I25.5 Ischemic cardiomyopathy; I35.8 Other nonrheumatic aortic valve disorders; R73.03 Prediabetes; Z79.82 Long term (current) use of aspirin; Z79.899 Other long term (current) drug therapy
CPT/HCPCS: 36415; 71045; 80053; 80061; 80307; 81001; 82810; 83036; 83690; 83735; 83880; 84100; 84443; 84484; 85025; 85610; 85730; 87081; 93005; 93306; 96360; 96365; 96366; 99152; 99153; 99285; A4649; C1769; C1887; C1894; J0171; J0282; J0283; J0360; J0461; J1643; J1644; J2250; J2310; J2371; J3010; J3490; J7030; Q9967; A9270; C1725; J2305